=== PATIENT | female | born 1930 | race Caucasian/White ===

== ENCOUNTER 2018-01-28 08:42 | Day surgery (SDC) | payer MEDICARE ==
[~2018-01-28] VITALS: Ht 157.5 cm; Wt 55.5 kg
[~2018-01-28 08:42] MED LIST: ALBU90OI INH; CLOP75 PO; DOCU100 PO; Dyazide 37.5-21 EACH PO; LOSA25 PO; SLEEP AID25 MG PO; TRIA50 PO; VITAMIN D32000 UNIT PO; Voltaren100 GM TOP
[2018-01-28] MEDS ORDERED: LOSA50 (09:10)
== END 2018-01-28 10:10 | disposition home or self-care (01) ==
LOC: ORSCSDS 08:42
PROVIDERS: Ophthalmology
PROC: 08RJ3JZ Replacement of Right Lens with Synthetic Substitute, Percutaneous Approach (ICD-10-PCS; principal; 2018-01-28 10:00)
DX: H25.11 Age-related nuclear cataract, right eye (principal); I10 Essential (primary) hypertension; Z86.73 Personal history of transient ischemic attack (TIA), and cerebral infarction without residual deficits; F32.9 Major depressive disorder, single episode, unspecified; J45.998 Other asthma; Z79.01 Long term (current) use of anticoagulants; Z79.899 Other long term (current) drug therapy; F17.210 Nicotine dependence, cigarettes, uncomplicated
CPT/HCPCS: J2250; J3010; J3301; V2632

== ENCOUNTER → 2019-03-09 | Outpatient (CLI) | payer MEDICARE ==
[~2019-03-09] MED LIST changes: +LOSA50
== END | disposition home or self-care (01) ==
LOC: PLD 11:43 → LAB SHORT 11:43
DX: L72.0 Epidermal cyst (principal)
CPT/HCPCS: 88304

== ENCOUNTER → 2019-04-14 | Outpatient (CLI) | payer MEDICARE ==
[2019-04-14 13:21] LABS: BASOPHILS ABSOLUTE AUTO 0.07 K/mm3 (0.00-0.23); BASOPHILS PERCENT AUTO 1 % (0-2); EOSINOPHILS ABSOLUTE AUTO 0.02 K/mm3 (0.00-0.68); EOSINOPHILS PERCENT AUTO 0 % (0-6); Hematocrit 39.2 % (33.0-51.0); Hemoglobin 12.7 g/dL (11.5-16.0); IMMATURE GRAN ABSOLUTE AUTO 0.08 K/mm3 (0.00-0.10); IMMATURE GRAN PERCENT AUTO 1 % (0-1); LYMPHOCYTES ABSOLUTE AUTO 1.25 K/mm3 (0.84-5.20); LYMPHOCYTES PERCENT AUTO 19 % (21-46); MONOCYTES ABSOLUTE AUTO 0.48 K/mm3 (0.16-1.47); MONOCYTES PERCENT AUTO 7 % (4-13); Mean Corpuscular HGB 31.1 pg (26.0-34.0); Mean Corpuscular HGB Conc 32.4 g/dL (31.5-36.5); Mean Corpuscular Volume 96 fL (80-100); Mean Platelet Volume 11.4 fL (9.1-12.4); NEUTROPHILS ABSOLUTE AUTO 4.64 K/mm3 (1.96-9.15); NEUTROPHILS PERCENT AUTO 71 % (41-73); Platelet Count 204 K/mm3 (150-400); RDW Coefficient Variation 13.6 % (11.7-14.2); RDW Standard Deviation 48.3 fL (35.1-46.3); Red Blood Cell Count 4.09 M/mm3 (3.80-5.20); White Blood Cell Count 6.54 K/mm3 (4.00-11.30)
[2019-04-14 13:30] LABS: Alanine Aminotransfer (ALT/SGP 21 U/L (12-78); Albumin, Blood 3.7 g/dL (3.4-5.0); Albumin/Globulin Ratio 1.2 (0.8-1.8); Alk Phos 104 U/L (40-126); Anion Gap 5 mmol/L (6-16); Aspartate Aminotrans (AST/SGOT 15 U/L (12-37); Bilirubin, Total 0.8 mg/dL (0.1-1.0); Blood Urea Nitrogen 14 mg/dL (8-24); Bun/Creatinine Ratio 24.6 (12.0-20.0); CO2, Blood 31 mmol/L (21-32); Chloride, Blood 107 mmol/L (98-108); Creatinine, Blood 0.57 mg/dL (0.40-1.00); Globulin, Blood 3.1 g/dL (2.2-4.0); Glomerular Filtration Rate >60 (60-); Glucose, Blood 109 mg/dL (70-99); Magnesium, Blood 1.5 mg/dL (1.6-2.4); Potassium, Blood 3.8 mmol/L (3.5-5.5); Sodium, Blood 143 mmol/L (136-145); Total Protein, Blood 6.8 g/dL (6.4-8.2)
== END | disposition home or self-care (01) ==
LOC: LAB EV 13:14 → LAB SHORT 13:14
PROVIDERS: Physician Assistant
DX: I50.9 Heart failure, unspecified (principal)
CPT/HCPCS: 80053; 83735; 83880; 85025

== ENCOUNTER 2020-12-05 12:41 | Inpatient (IN) | payer MEDICARE ==
[~2020-12-05] VITALS: Ht 154.9 cm; Wt 50.4 kg
[~2020-12-05 12:41] MED LIST changes: -ALEN10 PO; -DOXYLAMINE-PYR1 EAC1 PO; -LANOXIN125 MCG PO; -Nicoderm Cq1 EACH TOP; -TOPROL XL50 M1 PO; -XARELTO20 MG PO
[2020-12-05 13:21] LABS: BASOPHILS ABSOLUTE AUTO 0.06 K/mm3 (0.00-0.23); BASOPHILS PERCENT AUTO 1 % (0-2); EOSINOPHILS ABSOLUTE AUTO 0.02 K/mm3 (0.00-0.68); EOSINOPHILS PERCENT AUTO 0 % (0-6); Hematocrit 40.9 % (33.0-51.0); IMMATURE GRAN ABSOLUTE AUTO 0.02 K/mm3 (0.00-0.10); IMMATURE GRAN PERCENT AUTO 0 % (0-1); LYMPHOCYTES ABSOLUTE AUTO 1.13 K/mm3 (0.84-5.20); LYMPHOCYTES PERCENT AUTO 13 % (21-46); MONOCYTES ABSOLUTE AUTO 0.75 K/mm3 (0.16-1.47); MONOCYTES PERCENT AUTO 8 % (4-13); Mean Corpuscular HGB 30.9 pg (26.0-34.0); Mean Corpuscular HGB Conc 31.8 g/dL (31.5-36.5); Mean Corpuscular Volume 97 fL (80-100); Mean Platelet Volume 11.5 fL (9.1-12.4); NEUTROPHILS ABSOLUTE AUTO 6.92 K/mm3 (1.96-9.15); NEUTROPHILS PERCENT AUTO 78 % (41-73); Platelet Count 252 K/mm3 (150-400); RDW Coefficient Variation 13.5 % (11.7-14.2); RDW Standard Deviation 48.4 fL (35.1-46.3); Red Blood Cell Count 4.21 M/mm3 (3.80-5.20)
[2020-12-05 13:40] LABS: Alanine Aminotransfer (ALT/SGP 62 U/L (12-78); Albumin, Blood 3.1 g/dL (3.4-5.0); Alk Phos 113 U/L (50-136); Anion Gap 6 mmol/L (6-16); Aspartate Aminotrans (AST/SGOT 34 U/L (12-37); Bilirubin, Total 0.9 mg/dL (0.1-1.0); Blood Urea Nitrogen 19 mg/dL (8-24); CO2, Blood 25 mmol/L (21-32); Calcium, Blood 8.4 mg/dL (8.5-10.1); Chloride, Blood 111 mmol/L (98-108); Creatinine, Blood 0.73 mg/dL (0.40-1.00); Globulin, Blood 3.1 g/dL (2.2-4.0); Glomerular Filtration Rate >60 (60-); Glucose, Blood 133 mg/dL (70-99); Potassium, Blood 4.2 mmol/L (3.5-5.5); Sodium, Blood 142 mmol/L (136-145); Total Protein, Blood 6.2 g/dL (6.4-8.2); Troponin I 0.017 ng/mL (0.000-0.040)
[2020-12-05] MEDS ORDERED: TOPROL XL50 M1 PO (14:34)
[2020-12-05] MEDS ORDERED: ALEN10 PO (14:34)
[2020-12-05] MEDS ORDERED: CLOP75 PO (14:34)
[2020-12-05 14:35] LABS: Free Thyroxine 1.11 ng/dL (0.70-1.60); Thyroid Stimulating Hormone 1.63 uIU/mL (0.360-4.800)
[2020-12-06 05:54] LABS: BASOPHILS ABSOLUTE AUTO 0.05 K/mm3 (0.00-0.23); BASOPHILS PERCENT AUTO 1 % (0-2); EOSINOPHILS ABSOLUTE AUTO 0.04 K/mm3 (0.00-0.68); EOSINOPHILS PERCENT AUTO 1 % (0-6); Hematocrit 36.2 % (33.0-51.0); Hemoglobin 11.8 g/dL (11.5-16.0); IMMATURE GRAN ABSOLUTE AUTO 0.02 K/mm3 (0.00-0.10); IMMATURE GRAN PERCENT AUTO 0 % (0-1); LYMPHOCYTES ABSOLUTE AUTO 1.08 K/mm3 (0.84-5.20); LYMPHOCYTES PERCENT AUTO 18 % (21-46); MONOCYTES ABSOLUTE AUTO 0.58 K/mm3 (0.16-1.47); MONOCYTES PERCENT AUTO 10 % (4-13); Mean Corpuscular HGB 31.2 pg (26.0-34.0); Mean Corpuscular HGB Conc 32.6 g/dL (31.5-36.5); Mean Corpuscular Volume 96 fL (80-100); Mean Platelet Volume 11.2 fL (9.1-12.4); NEUTROPHILS ABSOLUTE AUTO 4.22 K/mm3 (1.96-9.15); NEUTROPHILS PERCENT AUTO 71 % (41-73); Platelet Count 202 K/mm3 (150-400); RDW Coefficient Variation 13.6 % (11.7-14.2); RDW Standard Deviation 47.8 fL (35.1-46.3); Red Blood Cell Count 3.78 M/mm3 (3.80-5.20); White Blood Cell Count 5.99 K/mm3 (4.00-11.30)
[2020-12-06 06:25] LABS: Anion Gap 5 mmol/L (6-16); Blood Urea Nitrogen 22 mg/dL (8-24); Bun/Creatinine Ratio 34.4 (12.0-20.0); CO2, Blood 26 mmol/L (21-32); Calcium, Blood 8.4 mg/dL (8.5-10.1); Chloride, Blood 111 mmol/L (98-108); Creatinine, Blood 0.64 mg/dL (0.40-1.00); Glomerular Filtration Rate >60 (60-); Glucose, Blood 102 mg/dL (70-99); Phosphorus, Blood 3.3 mg/dL (2.5-4.9); Potassium, Blood 3.9 mmol/L (3.5-5.5); Sodium, Blood 142 mmol/L (136-145)
[2020-12-06] MEDS ORDERED: DOXYLAMINE-PYR1 EAC1 PO (11:47)
--- NOTE | 2020-12-06 13:02 | NUR ---
Echocardiogram performed.
--- NOTE | 2020-12-06 15:48 | NUR ---
RM: [facility] PCU NAME: Frances Fox : 1930 PCP: Stephanie ObregonPATIENT PHYSICIAN: Dr. Brooks CC: Stephanie EastADMIT: 12/05/2020 DISCHARGE DATE: TBD DX: AFIB with RVR RECENT HOSPITILIZATIONS: N/AUpdate 12/06/20: Per chart review with Dr. Brooks, pt. likely to discharge within the next 24-48 hours. discussed discharge planning and care coordination with pt. The only concern that she has is difficult in performing housework such as cleaning. I have put together a packet for pt. with info regarding assistance with tool maker apprentice. Scheduled pt. with Dr. Carreon for hospital F/U on 12/14/20 at 4:20pm. Pt. notified of appointment and given a discharge letter with appointment info written on it. Pt. advised to contact triage line with any concerns or questions post discharge. Pt. agreeable. Discharge decision TBD by Dr. Brooks.
--- NOTE | 2020-12-06 19:32 | NUR ---
RECEIVED REPORT FROM PARTS PROCESSOR AT 1016; PT ARRIVED AT 1110 VIA GURNEY ACCOMPANIED BY PARTS PROCESSOR AND VOCATIONAL NURSE WITH CARDIAC MONITORING ON ROOM AIR AND ON DILTIAZEM GTT AT 10MG/HR; PT TRANSFERRED TO TELEMETRY MONITORING; PT GAVE PERMISSION FOR ALL 3 OF HER SONS TO RECEIVE INFO ABOUT HER; PT MENTIONED BEING A DNR AND THAT HER SON CARLOS ENRIQUE HAD PAPERWORK AT HOME; CARLOS ENRIQUE'S NUMBER WAS CALLED AT 1335 BUT VOICEMAIL BOX WAS FULL; SON MOSES WAS CALLD AT 1336 AND MESSAGE LEFT; CARLOS ENRIQUE CAME TO VISIT PT IN HOSPITAL AND WAS ASKED TO BRING PAPERWORK ON HER CODE STATUS TO THE HOSPITAL SOON HE CAN SINCE PT IS STILL LISTED FULL CODE; MOSES CALLED BACK AT 1445 FOR UPDATES AND WAS INFORMED ABOUT THE VISITATION POLICY; PT DENIES ADDITIONAL CONCERNS AT THIS TIME
--- NOTE | 2020-12-07 05:26 | NUR ---
PT IS AXO X4. PT'S HR HAS MAINTAINED AFIB 80-115 THIS SHIFT. CARDIZEM RUNNING AT 5MG/HR FOR THIS SHIFT. BP'S STABLE. PT DENYING ANY CP OR PRESSURE THIS SHIFT. O2 SATS >92% ON RM AIR. WILL REPORT TO ONCOMING RN.
--- NOTE | 2020-12-07 08:00 | NUR ---
pt sitting up in a chair for breakfast, a/ox3 pleasant and cooperative with care, follows commands well, denies pain, states she feels sluggish, a bit worse than yesterday, lungs are clear dim in bases, resp even and unlabored, no cough noted, hrirr, tele in place running afib per monitor, see strip, no edema noted, ppp+2, cap refill <3sec, vs stable, afebrile, iv to rac site is clear and patent, infusing cardizem gtt as ordered, btx4, abd flat soft nontender, voids via bsc, skin c/w/d, melina franco, call light in reach.
--- NOTE | 2020-12-07 10:18 | NUR ---
Dr. Brooks in to see pt he ok to give lasix and higher dose of metoprolol, cardizem gtt off. b/p 113/63.
--- NOTE | 2020-12-07 11:52 | NUR ---
Upon receiving a referral for spiritual care, I visit patient. Patient talks at length about her family, the loss of her son in 2017 and spouse in 2019 and the pain that has caused her. Patient is very strong and has a wonderful sense of humor and is determined to continue living well and with gratitude. Patient tells me that she is spiritual and prays often and that prayer has been a primary tool for over coming the struggles in her life. I normalize patient's experience and provide therapeutic listening, spiritual guidance, grief support and prayer. Patient responds well and shows signs of an elevated mood and being comforted. I will continue to remain available to patient and family.
--- NOTE | 2020-12-07 18:33 | NUR ---
PT HAS BEEN DOING OK, BUT HEART RATE IS GOING BETWEEN 109 TO 140'S, SHE DID HAVE A LOPRESSOR PUSH, WILL DO ANOTHER, IF STILL UP. PT IS NOT SYMPTOMATIC, B/P OK, CALL LIGHT IN REACH.
--- NOTE | 2020-12-07 19:31 | NUR ---
ASSUMED CARE, PATIENT LAYING IN BED A&O, NO COMPLAINTS OR NEEDS AT THIS TIME. SEE [facility] SHIFT ASSESSMENT FOR FULL ASSESSMENT.
--- NOTE | 2020-12-07 22:32 | NUR ---
RECEIVED REPORT AND ASSUMED CARE OF PT. SHE IS LYING QUIETLY IN BED WITH HER EYES CLOSED AND EVEN, UNLABORED RESPIRATIONS. WCTM.
--- NOTE | 2020-12-08 02:40 | NUR ---
PT's HR NOTED TO HAVE TRENDED UP TO 140-150. IV METOPROLOL ADMINISTERED, HR IMPROVED TO 130's. WCTM.
--- NOTE | 2020-12-08 06:37 | NUR ---
SHIFT SUMMARY: AYLIN IS A&OX4. VSS, NO ACUTE EVENTS OVERNIGHT. SHE DID REQUIRE A DOSE OF IV METOPROLOL THIS SHIFT FOR HR TRENDING INTO THE 104s. SHE STATES THAT SHE CAN TELL WHEN HER HEART RATE IS RAPID BECAUSE SHE BECOMES SOB. SHE IS TOLERATING PO INTAKE WELL, URINATING WIHTOUT DIFFICULTY, STANDBY ASSIST TO THE BATHROOM ALTHOUGH SHE ADMITTED THAT HAS TAKEN HERSELF INDEPENDENTLY THIS SHIFT. IV TO R AC PATENT, DRESSING CHANGED D/T SMALL AMT BLOOD. SHE IS LYING IN BED WITH THE CALL LIGHT IN REACH. WILL REPORT TO DAY SHIFT RN.
--- NOTE | 2020-12-08 08:00 | NUR ---
pt up to chair for breakfast, she is a/ox3, pleasant and cooperative with care, follows commands well, denies pain, but states she feels off, that she felt better yesterday but cant define what it is, her stomach was bothering her, she agreed to try some soda, this didn't help much, lungs are clear t/o, resp even and unlabored, no cough noted, is on r/a, hrirr, tele in place running afib between 110 and 145 bpm, no edema noted, ppp+2, cap refill< 3sec, vs stable, afebrile, iv site to rac is clear and patent, bt x4, abd flat soft nontender, voids without diff, skin c/w/d, joan, melina, call light in reach.
--- NOTE | 2020-12-08 16:38 | NUR ---
Update 12/08/20: Per chart review with Dr. Brooks, pt. not yet appropriate for discharge. PT. attempted to evaluate pt. today, unable to due to elevated heart rate per notes. Pt. could potentially need home health at time of discharge. Pt. has been scheduled for her hospital F/U appointment on 12/14/20 at 4:20 pm. Discharge planning with exception of hospice or alternative recommendations from PT has been completed with pt. Pt. has appointment card with time and date. If pt. remains hospitalized throughout the weekend we will discuss changing appointment on Friday.
--- NOTE | 2020-12-08 18:54 | NUR ---
pt heart rate is unchanged, she reports she has been off today, no feeling great, she did recieve a dose of lasix this early evening, she wasn't happy about that, but had her use a bsc rather than trying to ambulate to the bathroom, no further change this shift, call light in reach.
--- NOTE | 2020-12-09 06:06 | NUR ---
SHIFT SUMMARY PATIENT ALERT AND ORIENTED. HAD NO COMPLAINTS OF PAIN. REPORTED HAVING SOME SHORTNESS OF BREATH. MEDICATED PER EMAR FOR TACHYCARDIA. IV PATENT AND FLUSHED. BED IN LOWEST POSITION WITH WHEELS LOCKED. CALL LIGHT WITHIN REACH. REPORT GIVEN TO ONCOMING RN.
--- NOTE | 2020-12-09 18:08 | NUR ---
SHIFT SUMMARY: STARTED ON AMIODORONE PO THIS MORNING, HR SLIGHTLY IMPROVED TO 110-120 FROM 140'S. DENIES PAIN INCLUDING CHEST DISCOMFORT, BUT ENDORSES FEELING POORLY IN GENERAL. APPETITE IS MODERATE. GETTING UP TO BSC WITH SUPERVISION. LUNGS ARE CTAB, ON RA. LBM 12/05; MAY NEED TO INCREASE BOWEL MEDS. PT/OT WORKED WITH PATIENT. SHE IS LOOKING FORWARD TO GOING HOME.
--- NOTE | 2020-12-09 18:48 | NUR ---
RECIEVED VERBAL CONSENT TO SPEAK TO JHONNY SAUCEDO, PT'S [id number]. LEFT MESSAGE. [phone]
--- NOTE | 2020-12-10 06:12 | NUR ---
SHIFT SUMMARY PATIENT ALERT AND ORIENTED. HAD NO COMPLAINTS OF PAIN. REPORTED HAVING SOME SHORTNESS OF BREATH AND A TRANSIENT EPISODE OF CHEST PRESSURE. PATIENT SLEPT WELL OVERNIGHT. IV PATENT AND FLUSHED. BED IN LOWEST POSITION WITH WHEELS LOCKED. CALL LIGHT WITHIN REACH. REPORT GIVEN TO ONCOMING RN.
[2020-12-10 14:25] LABS: Anion Gap 8 mmol/L (6-16); Blood Urea Nitrogen 30 mg/dL (8-24); Bun/Creatinine Ratio 46.4 (12.0-20.0); CO2, Blood 25 mmol/L (21-32); Calcium, Blood 9.1 mg/dL (8.5-10.1); Chloride, Blood 108 mmol/L (98-108); Creatinine, Blood 0.65 mg/dL (0.40-1.00); Glomerular Filtration Rate >60 (60-); Glucose, Blood 172 mg/dL (70-99); Potassium, Blood 3.7 mmol/L (3.5-5.5); Sodium, Blood 141 mmol/L (136-145)
--- NOTE | 2020-12-10 18:33 | NUR ---
SHIFT SUMMARY PT A&O; ANXIOUS AT TIMES; CALM AND COOPERATIVE WITH CARE SHIFT. PT IND IN ROOM. HR ELEVATED 120-150 T/O SHIFT, DR ALVAREZ NOTIFIED, NEW ORDERS FOR CARDILOGY CONSULT. PRIOR TO CARDIOLOGY SEEING PT, PT BECAME SOB AND REPORTS HEART PALPITATIONS; DR ALVAREZ NOTIFIED WITH NEW ORDER FOR EKG AND ADDITIONAL DOSE OF IV LOPRESSOR. DR GARZA AT BEDSIDE THIS AFTERNOON, NEW ORDERS TO START DIGOXIN AND XARELTOL. PT EDUCATED ON BOTH NEW MEDICATIONS AND ADMINISTERED PER ORDERS. PT DENIES PAIN, NAUSEA AND DIZZINESS T/O SHIFT. PT OTHER VSS. SPO2 >90% ON RA. NO OTHER ACUTE CHANGES NOTED DURING SHIFT. WILL CONTINUE TO MONITOR UNTIL REPORT GIVEN TO ONCOMING RN.
--- NOTE | 2020-12-11 07:17 | NUR ---
SHIFT SUMMARY NO ACUTE CHANGES THIS SHIFT. PT A&OX4, SUPER PLEASANT. SP02>92% ON RA. TELEMETRY READS AFIB, HR 60'S. PT STATES "I WAS SO EXCITED TO HEAR MY HEARTRATE WAS 79 THAT I SHOT IT BACK UP!". PT UP INDEPENDENTLY TO BSC TO VOID MULTIPLE TIMES DURING NIGHT. PT SLEPT T/O SHIFT. CALL LIGHT IN REACH. WILL GIVE REPORT TO ONCOMING NURSE.
[2020-12-11 11:45] LABS: Anion Gap 8 mmol/L (6-16); Blood Urea Nitrogen 26 mg/dL (8-24); Bun/Creatinine Ratio 48.7 (12.0-20.0); CO2, Blood 26 mmol/L (21-32); Calcium, Blood 8.7 mg/dL (8.5-10.1); Chloride, Blood 108 mmol/L (98-108); Creatinine, Blood 0.53 mg/dL (0.40-1.00); Glomerular Filtration Rate >60 (60-); Glucose, Blood 148 mg/dL (70-99); Potassium, Blood 3.5 mmol/L (3.5-5.5); Sodium, Blood 142 mmol/L (136-145)
[2020-12-11 11:46] LABS: BASOPHILS ABSOLUTE AUTO 0.06 K/mm3 (0.00-0.23); BASOPHILS PERCENT AUTO 1 % (0-2); EOSINOPHILS ABSOLUTE AUTO 0.01 K/mm3 (0.00-0.68); EOSINOPHILS PERCENT AUTO 0 % (0-6); Hematocrit 41.2 % (33.0-51.0); Hemoglobin 13.6 g/dL (11.5-16.0); IMMATURE GRAN PERCENT AUTO 1 % (0-1); LYMPHOCYTES ABSOLUTE AUTO 0.92 K/mm3 (0.84-5.20); LYMPHOCYTES PERCENT AUTO 11 % (21-46); MONOCYTES ABSOLUTE AUTO 0.52 K/mm3 (0.16-1.47); MONOCYTES PERCENT AUTO 6 % (4-13); Mean Corpuscular HGB 30.6 pg (26.0-34.0); Mean Corpuscular Volume 93 fL (80-100); Mean Platelet Volume 11.3 fL (9.1-12.4); NEUTROPHILS ABSOLUTE AUTO 6.81 K/mm3 (1.96-9.15); NEUTROPHILS PERCENT AUTO 81 % (41-73); Platelet Count 300 K/mm3 (150-400); RDW Coefficient Variation 13.5 % (11.7-14.2); RDW Standard Deviation 45.7 fL (35.1-46.3); Red Blood Cell Count 4.45 M/mm3 (3.80-5.20); White Blood Cell Count 8.42 K/mm3 (4.00-11.30)
--- NOTE | 2020-12-11 17:17 | NUR ---
Update 12/11/20: HR control has continued to be a concern with pt. throughout the weekend. Pt. not yet appropriate for discharge. Spoke with pt. this afternoon and she states she is feeling much better after recent medication change. Discussed HH recommendations. Pt. agreeable to [facility] HH assessment and care post discharge. Pt. has the DME she needs at home to perform the ADL. Denied any additional needs at this time. Pt. is scheduled for a hospital F/U as mentioned in previous progress notes. We will reschedule if indicated based on discharge date.
--- NOTE | 2020-12-11 17:35 | NUR ---
SHIFT SUMMARY; ASSUMED CARE AT 0700, REPORT FROM CHARLI. Van/Van/OX4 THROUGHOUT SHIFT. AFIB WITH RATE CONTROLLED AT 60-70 DURING SHIFT. VSS, DECLINED PT THIS AFTERNOON, STATES DIDN'T FEEL UP TO IT. WILL CONTINUE TO MONITOR AND TREAT UNTIL CHANGE OF SHIFT. POSSIBLE DISCHARGE TOMORROW.
[2020-12-12 03:54] LABS: BASOPHILS ABSOLUTE AUTO 0.06 K/mm3 (0.00-0.23); BASOPHILS PERCENT AUTO 1 % (0-2); EOSINOPHILS ABSOLUTE AUTO 0.03 K/mm3 (0.00-0.68); EOSINOPHILS PERCENT AUTO 0 % (0-6); Hematocrit 38.5 % (33.0-51.0); Hemoglobin 12.7 g/dL (11.5-16.0); IMMATURE GRAN ABSOLUTE AUTO 0.03 K/mm3 (0.00-0.10); IMMATURE GRAN PERCENT AUTO 0 % (0-1); LYMPHOCYTES ABSOLUTE AUTO 1.11 K/mm3 (0.84-5.20); LYMPHOCYTES PERCENT AUTO 16 % (21-46); MONOCYTES ABSOLUTE AUTO 0.57 K/mm3 (0.16-1.47); MONOCYTES PERCENT AUTO 8 % (4-13); Mean Corpuscular HGB 30.5 pg (26.0-34.0); Mean Corpuscular Volume 93 fL (80-100); Mean Platelet Volume 10.9 fL (9.1-12.4); NEUTROPHILS PERCENT AUTO 74 % (41-73); Platelet Count 280 K/mm3 (150-400); RDW Coefficient Variation 13.4 % (11.7-14.2); RDW Standard Deviation 45.9 fL (35.1-46.3); Red Blood Cell Count 4.16 M/mm3 (3.80-5.20)
[2020-12-12 04:14] LABS: Alanine Aminotransfer (ALT/SGP 94 U/L (12-78); Albumin, Blood 2.9 g/dL (3.4-5.0); Albumin/Globulin Ratio 1.1 (0.8-1.8); Alk Phos 105 U/L (50-136); Anion Gap 7 mmol/L (6-16); Aspartate Aminotrans (AST/SGOT 42 U/L (12-37); Bilirubin, Total 0.5 mg/dL (0.1-1.0); Blood Urea Nitrogen 23 mg/dL (8-24); Bun/Creatinine Ratio 31.5 (12.0-20.0); CO2, Blood 27 mmol/L (21-32); Calcium, Blood 8.4 mg/dL (8.5-10.1); Chloride, Blood 108 mmol/L (98-108); Creatinine, Blood 0.73 mg/dL (0.40-1.00); Globulin, Blood 2.6 g/dL (2.2-4.0); Glomerular Filtration Rate >60 (60-); Glucose, Blood 101 mg/dL (70-99); Potassium, Blood 3.4 mmol/L (3.5-5.5); Sodium, Blood 142 mmol/L (136-145); Total Protein, Blood 5.5 g/dL (6.4-8.2)
--- NOTE | 2020-12-12 06:17 | NUR ---
SHIFT SUMMARY NO ACUTE CHANGES THIS SHIFT. PT A&OX4. SP02>92% ON RA. TELEMTRY READS AFIB, HR 60'S-80'S. PT DENIES PAIN. PT UP TO BATHROOM TO VOID. PT ATTEMPTED TO HAVE BM MULTIPLE TIMES DURING NIGHT. REQUESTED TO NOT HAVE BOWEL CARE UNTIL THE MORNING. PT STATES "I DONT WANT TO DO IT AT NIGHT IN CASE I HAVE A BLOW OUT." PT AWAKENED APPROX 0200 AND COULD NOT SLEEP, STATES SHE WAS WORRIED ABOUT THIS AT HOME, SUCH IF ANYONE WATERED HER PLANTS. CALL LIGHT IN REACH. WILL GIVE REPORT TO ONCOMING NURSE.
[2020-12-12] MEDS ORDERED: Nicoderm Cq1 EACH TOP (14:30)
[2020-12-12] MEDS ORDERED: LANOXIN125 MCG PO (14:30)
[2020-12-12] MEDS ORDERED: XARELTO20 MG PO (14:31)
--- NOTE | 2020-12-12 16:41 | NUR ---
DISCHARGE NOTE PT A&Ox3; CALM AND COOPERATIVE WITH CARE. PT RESTING IN BED DURING SHIFT. UP IN ROOM IND. PT REPORTS DISCOMFORT WITH NO SIGNIFICAN BM SINCE ADMISSION, NOTIFIED DR MIRANDA, NEW ORDER FOR FLEET ENEMA; RESULTING IN LARGE BM. PT DENIES PAIN, CHEST PAIN, NAUSEA AND DIZZINESS. SOB WITH EXERTION NOTED. PER TELE AFIB 70-90'S FOR MAJOIRTY OF SHIFT, UP TO 120'S WITH AMBULATION THIS AM. OTHER VSS. NO OTHER ACUTE CHAGNES NOTED. PT AND SON CARLOS ENRIQUE EDUCATED ON DISCHARGE INSTURCTIONS, FOLLOW UP APPOINTMENT AND MEDCIATIONS. XARELTO SAMPLE PROVIDED TO PT FROM [facility], PT EDUCATED TO CALL AND SPEAK WITH REP REGARDING HELP WITH XARELTO PRESCRIPTION. PRESCRIPTIONS CALLED INTO [facility] PER PT REQUEST. PT EDCUATED ON IMPORTANCE OF PICKING UP MEDCIATIONS AND DISCUSSED NEXT DOSES AT HOME. PT LEFT ROOM VIA WHEELCHAIR AT 1613.
== END 2020-12-12 16:13 | disposition home health service (06) | DRG 309 ==
LOC: ER 12:41 → ERHOLD 12:42 → PCU 12-06 10:24
PROVIDERS: Emergency Medicine; Family Medicine; Internal Medicine Cardiovascular Disease; ADMIT Internal Medicine
DX: I48.91 Unspecified atrial fibrillation (principal); I50.22 Chronic systolic (congestive) heart failure; I11.0 Hypertensive heart disease with heart failure; I08.1 Rheumatic disorders of both mitral and tricuspid valves; I25.5 Ischemic cardiomyopathy; J44.9 Chronic obstructive pulmonary disease, unspecified; M81.0 Age-related osteoporosis without current pathological fracture; F17.210 Nicotine dependence, cigarettes, uncomplicated; Z86.73 Personal history of transient ischemic attack (TIA), and cerebral infarction without residual deficits; Z79.02 Long term (current) use of antithrombotics/antiplatelets; Z88.0 Allergy status to penicillin; Z88.2 Allergy status to sulfonamides; Z88.8 Allergy status to other drugs, medicaments and biological substances; Z71.6 Tobacco abuse counseling; Z79.899 Other long term (current) drug therapy; Z90.710 Acquired absence of both cervix and uterus; Z98.890 Other specified postprocedural states
CPT/HCPCS: 36415; 71045; 71046; 80048; 80053; 83735; 83880; 84100; 84439; 84443; 84484; 85025; 93005; 93010; 93306; 96365; 96366; 96372; 96375; 96376; 97110; 97162; 97530; 99285-25; A9270; G0378; J1160; J1650; J1940

== ENCOUNTER → 2020-12-05 | Outpatient (CLI) | payer MEDICARE ==
[~2020-12-05] MED LIST changes: +ALEN10 PO; +DOXYLAMINE-PYR1 EAC1 PO; +LANOXIN125 MCG PO; -LOSA50; +LOSA50 PO; +Nicoderm Cq1 EACH TOP; +TOPROL XL50 M1 PO; +VITAMIN D31000 UNI1 PO; -VITAMIN D32000 UNIT PO; +XARELTO20 MG PO
[2020-12-05 12:11] LABS: BASOPHILS ABSOLUTE AUTO 0.04 K/mm3 (0.00-0.23); BASOPHILS PERCENT AUTO 1 % (0-2); EOSINOPHILS ABSOLUTE AUTO 0.02 K/mm3 (0.00-0.68); EOSINOPHILS PERCENT AUTO 0 % (0-6); Hematocrit 41.5 % (33.0-51.0); Hemoglobin 13.7 g/dL (11.5-16.0); IMMATURE GRAN ABSOLUTE AUTO 0.03 K/mm3 (0.00-0.10); IMMATURE GRAN PERCENT AUTO 0 % (0-1); LYMPHOCYTES ABSOLUTE AUTO 1.05 K/mm3 (0.84-5.20); LYMPHOCYTES PERCENT AUTO 13 % (21-46); MONOCYTES ABSOLUTE AUTO 0.67 K/mm3 (0.16-1.47); MONOCYTES PERCENT AUTO 9 % (4-13); Mean Corpuscular HGB 31.1 pg (26.0-34.0); Mean Corpuscular Volume 94 fL (80-100); Mean Platelet Volume 11.7 fL (9.1-12.4); NEUTROPHILS ABSOLUTE AUTO 6.06 K/mm3 (1.96-9.15); NEUTROPHILS PERCENT AUTO 77 % (41-73); Platelet Count 265 K/mm3 (150-400); RDW Coefficient Variation 13.6 % (11.7-14.2); RDW Standard Deviation 47.1 fL (35.1-46.3); Red Blood Cell Count 4.41 M/mm3 (3.80-5.20); White Blood Cell Count 7.87 K/mm3 (4.00-11.30)
[2020-12-05 12:33] LABS: Alanine Aminotransfer (ALT/SGP 69 U/L (12-78); Albumin, Blood 3.5 g/dL (3.4-5.0); Albumin/Globulin Ratio 1.1 (0.8-1.8); Alk Phos 119 U/L (40-126); Anion Gap 14 mmol/L (6-16); Aspartate Aminotrans (AST/SGOT 29 U/L (12-37); Blood Urea Nitrogen 20 mg/dL (8-24); Bun/Creatinine Ratio 24.4 (12.0-20.0); CO2, Blood 24 mmol/L (21-32); Calcium, Blood 9.4 mg/dL (8.5-10.1); Chloride, Blood 105 mmol/L (98-108); Creatinine, Blood 0.82 mg/dL (0.40-1.00); Free Thyroxine 1.34 ng/dL (0.70-1.60); Globulin, Blood 3.3 g/dL (2.2-4.0); Glomerular Filtration Rate >60 (60-); Glucose, Blood 130 mg/dL (70-99); Magnesium, Blood 1.8 mg/dL (1.6-2.4); Potassium, Blood 3.9 mmol/L (3.5-5.5); Sodium, Blood 143 mmol/L (136-145); Total Protein, Blood 6.8 g/dL (6.4-8.2)
== END | disposition home or self-care (01) ==
LOC: LAB SHORT 12:05 → LAB 12:05
PROVIDERS: Chiropractor
DX: I48.91 Unspecified atrial fibrillation (principal); R07.9 Chest pain, unspecified; R53.83 Other fatigue
CPT/HCPCS: 80053; 83735; 83880; 84439; 84443; 84484; 85025; 85379

== ENCOUNTER 2021-01-26 13:55 | Inpatient (IN) | payer MEDICARE ==
[~2021-01-26] VITALS: Ht 127 cm; Wt 46.2 kg
[~2021-01-26 13:55] MED LIST changes: +ALEN10 PO; +DOXYLAMINE-PYR1 EAC1 PO; +LANOXIN125 MCG PO; +Nicoderm Cq1 EACH TOP; +TOPROL XL50 M1 PO; +XARELTO20 MG PO
[2021-01-26 15:12] LABS: BASOPHILS ABSOLUTE AUTO 0.02 K/mm3 (0.00-0.23); BASOPHILS PERCENT AUTO 0 % (0-2); EOSINOPHILS PERCENT AUTO 0 % (0-6); Hematocrit 48.5 % (33.0-51.0); Hemoglobin 15.5 g/dL (11.5-16.0); IMMATURE GRAN PERCENT AUTO 1 % (0-1); LYMPHOCYTES ABSOLUTE AUTO 0.73 K/mm3 (0.84-5.20); LYMPHOCYTES PERCENT AUTO 6 % (21-46); MONOCYTES ABSOLUTE AUTO 0.61 K/mm3 (0.16-1.47); MONOCYTES PERCENT AUTO 5 % (4-13); Mean Corpuscular HGB 30.1 pg (26.0-34.0); Mean Corpuscular Volume 94 fL (80-100); Mean Platelet Volume 12.6 fL (9.1-12.4); NEUTROPHILS ABSOLUTE AUTO 10.86 K/mm3 (1.96-9.15); NEUTROPHILS PERCENT AUTO 88 % (41-73); NRBC ABSOLUTE 0.06 K/mm3 (0.00-0.02); NRBC Auto 0.5 /100 WBC (0.0-0.2); Platelet Count 222 K/mm3 (150-400); RDW Coefficient Variation 16.8 % (11.7-14.2); RDW Standard Deviation 54.1 fL (35.1-46.3); Red Blood Cell Count 5.15 M/mm3 (3.80-5.20); White Blood Cell Count 12.32 K/mm3 (4.00-11.30)
[2021-01-26 15:32] LABS: Albumin/Globulin Ratio 1.5 (0.8-1.8); Bilirubin, Total 1.5 mg/dL (0.1-1.0); Bun/Creatinine Ratio 44.6 (12.0-20.0); Calcium, Blood 9.6 mg/dL (8.5-10.1); Creatinine, Blood 1.39 mg/dL (0.40-1.00); Globulin, Blood 2.7 g/dL (2.2-4.0); Potassium, Blood 4.9 mmol/L (3.5-5.5); Total Protein, Blood 6.7 g/dL (6.4-8.2); Troponin I 0.086 ng/mL (0.000-0.040)
[2021-01-26 19:02] LABS: Source, Urine Clean Catch
[2021-01-26] MEDS ORDERED: ELIQUIS5 M2 PO (19:26)
[2021-01-26 19:27] LABS: Appearance, Urine Clear (Clear); Blood, Urine Neg (Neg); Color, Urine Amber (P-Yellow); Glucose Qualitative, Urine Neg (Neg); Ketones, Urine Neg (Neg); Leukocyte Esterase, Urine 1+ (Neg); Nitrite, Urine Neg (Neg); Protein, Urine 3+ (Neg); Urobilinogen, Urine 1+ (Normal)
[2021-01-26 19:45] LABS: Bilirubin, Urine 1+ (Neg)
[2021-01-26 19:46] LABS: Bacteria Few /hpf; Red Blood Cells, Urine 0-2 /hpf (0-2); Squamous Epithelial Cells Few /hpf (Few)
[2021-01-26 19:47] LABS: Hyaline Casts 0-2 /lpf (0-2)
--- NOTE | 2021-01-26 19:54 | NUR ---
Met with pt she was confussed and drifting off. She denies headache or chest pain some air hunger no nausea. Called her sons for an update. She lives with samia. He states she has been sleeping alittle more and walking less but still preparing some of her food and doing a few things. He askes her every day is she is taking her medications. She states yes but he thinks she is fibbing to him. He states the last two days she has had great decline and today she was very confussed and could not stand. Called her other son Ian and reviewed my assessment and her frailty. Julian is underweight and short of breath and ill. She told the doctor she does not want to take her medications anymore. Told the son about her statements. Ian is going to drive to [place] tomorrow to help his brother. I discussed her prognosis and kps score of 40% with Ian and brought up hospice. He said they did hospice with their father. And he understood that she was getting closer to end of life.I also dbriefly discussed with both sons linyee canraine and see if we can get her heart rate under control and get her breating better. ER physician was going to geta UA and some more diagnositcs. Pt had a booklet from [facility] as they were seeing her at one time. Called [facility] hospice and asked them to put her on their radar and will get a consult. Suggest we treat her and resume home helath or consider hospice caare if she does not repond or declines or refuses care. Goal is quality of life and reduce suffering.
[2021-01-26 20:25] LABS: SARS-Cov-2 (COVID-19) PCR, MMC NEGATIVE (NEGATIVE)
--- NOTE | 2021-01-26 23:16 | NUR ---
PATIENT ARRIVED FROM ER TODAY 01/26/21 AT 2230. SHE IS ALERT AND ORIENTED X2. SHE IS ABLE TO SAY HER NAME AND ANSWER ONLY EASIER QUESTIONS. SHE DOESN'T REMEMBER WHAT MEDICATIONS SHE TAKES OR WHERE SHE IS. VS ARE WNL EXCEPT FOR HER HR BEING TACHY WITH AFIB AND IS ON 4L NC. SHE IS ON A CARDIEM DRIP AT 5MG/HR. SHE DENIES ANY CHEST PAIN OR SHORTNESS OF BREATH. TELE IS ON. BED ALARM IS ALSO ON. SHE IS CURRENTLY LAYING IN BED RESTING COMFORTABLY. SCD'S ARE ON. CALL LIGHT WITHIN REACH.
--- NOTE | 2021-01-27 03:33 | NUR ---
SHIFT SUMMARY: AFIB WITH RVR PATIENT IS CONFUSED AND IS ONLY ORIENTED TO SELF AT THIS TIME. LUNG SOUNDS ARE DIMINISHED IN THE BASES. ENCOURAGING NC USE OF 4L OXYGEN AND DEEP BREATHING. TELE IS ON AND IS AT 114 BPM AFIB. BED ALARM IS ON. SHE HAS BEEN ASLEEP SINCE ARRIVING FROM THE ER. SCD'S ARE IN PLACE. CALL LIGHT WITHIN REACH. SHE DENIES CHEST PAIN OR SHORTNESS OF BREATH. SHE IS CURRENTLY RESTING IN BED WITH HER EYES CLOSED WITH EVEN/EQUAL RESP. THE PLAN IS TO CONTINUE WATCH OF HR AND TITRATING CARDIZEM DRIP PER HR.
[2021-01-27 05:57] LABS: Bun/Creatinine Ratio 51.5 (12.0-20.0); Calcium, Blood 8.8 mg/dL (8.5-10.1); Creatinine, Blood 1.3 mg/dL (0.40-1.00); Potassium, Blood 4.8 mmol/L (3.5-5.5); Troponin I 0.063 ng/mL (0.000-0.040)
--- NOTE | 2021-01-27 11:11 | NUR ---
CARDIZEM DRIP RE-STARTED AT APROX 1100
--- NOTE | 2021-01-27 13:52 | NUR ---
CARDIZEM GTT DISCONTINUED AT PT'S HR SUSTAINING IN 70'S PER TELE MONITOR.
[2021-01-27 14:13] LABS: Digoxin (Lanoxin) 0.59 ug/mL (0.80-2.00)
--- NOTE | 2021-01-27 18:20 | NUR ---
Will follow up with care manger and family on her future needs. kps score is 40%
--- NOTE | 2021-01-27 18:35 | NUR ---
SHIFT SUMMARY PER TELE CONTINUES TO BE AFIB WITH RATE BETWEEN 70-80 OFF CARDIZEM DRIP SWITCHED TO ORAL MEDICATION. PT ORIENTED TO SELF, HAS DIFFICULTY ANSWERING QUESTIONS. PT MAX ASSIST TO BSC PIVOT. LOW PO INTAKE T/O SHIFT.
[2021-01-28 03:38] LABS: Source, Urine Clean Catch
[2021-01-28 03:40] LABS: Bilirubin, Urine Neg (Neg); Blood, Urine 3+ (Neg); Glucose Qualitative, Urine Neg (Neg); Ketones, Urine Neg (Neg); Leukocyte Esterase, Urine 1+ (Neg); Nitrite, Urine Neg (Neg); Protein, Urine 2+ (Neg); Urobilinogen, Urine NORM (Normal)
--- NOTE | 2021-01-28 03:40 | NUR ---
SHIFT SUMMARY: AFIB RVR PATIENT IS ALERT TO SELF AND IS ABLE TO FOLLOW DIRECTIONS WHEN ASKED. VS ARE WNL AND IS ON RA. HER OXYGEN SATS ARE >90% ON RA. PATIENT DENIES CHEST PAIN OR SOB. SHE HAS TELE ON AND IS IN PLACE. PATIENT IS A 2 PERSON SBA TO THE COMMODE. SHE WAS ABLE TO VOID IN THE BEDSIDE COMMODE A LOT EASIER THAN THE BED BEASLEY. SHE OTHERWISE HAS BEEN SLEEPING MAJORITY OF THE SHIFT. SHE TENDS TO YELL OUT OF THE ROOM INSTEAD OF USING THE CALL LIGHT WHEN NEEDING SOMETHING. BED ALARM IS ON. CALL LIGHT IS WITHIN REACH.
[2021-01-28 03:59] LABS: Appearance, Urine Hazy (Clear); Color, Urine Yellow (P-Yellow)
[2021-01-28 04:00] LABS: Amorphous Light (0-Heavy); Bacteria Few /hpf; Squamous Epithelial Cells Rare /hpf (Few)
[2021-01-28 05:29] LABS: BASOPHILS ABSOLUTE AUTO 0.03 K/mm3 (0.00-0.23); BASOPHILS PERCENT AUTO 0 % (0-2); EOSINOPHILS PERCENT AUTO 0 % (0-6); Hematocrit 45.9 % (33.0-51.0); Hemoglobin 14.7 g/dL (11.5-16.0); IMMATURE GRAN ABSOLUTE AUTO 0.12 K/mm3 (0.00-0.10); IMMATURE GRAN PERCENT AUTO 1 % (0-1); LYMPHOCYTES ABSOLUTE AUTO 0.43 K/mm3 (0.84-5.20); LYMPHOCYTES PERCENT AUTO 3 % (21-46); MONOCYTES ABSOLUTE AUTO 0.71 K/mm3 (0.16-1.47); MONOCYTES PERCENT AUTO 5 % (4-13); Mean Corpuscular HGB 30.1 pg (26.0-34.0); Mean Corpuscular Volume 94 fL (80-100); Mean Platelet Volume 12.3 fL (9.1-12.4); NEUTROPHILS ABSOLUTE AUTO 12.68 K/mm3 (1.96-9.15); NEUTROPHILS PERCENT AUTO 91 % (41-73); NRBC ABSOLUTE 0.02 K/mm3 (0.00-0.02); NRBC Auto 0.1 /100 WBC (0.0-0.2); Platelet Count 119 K/mm3 (150-400); RDW Coefficient Variation 16.4 % (11.7-14.2); RDW Standard Deviation 55.2 fL (35.1-46.3); Red Blood Cell Count 4.88 M/mm3 (3.80-5.20); White Blood Cell Count 13.97 K/mm3 (4.00-11.30)
[2021-01-28 08:42] LABS: Bun/Creatinine Ratio 57.6 (12.0-20.0); Calcium, Blood 8.7 mg/dL (8.5-10.1); Creatinine, Blood 0.92 mg/dL (0.40-1.00); Potassium, Blood 4.1 mmol/L (3.5-5.5)
--- NOTE | 2021-01-28 12:20 | NUR ---
PT TRANSFERED TO MEDICAL FLOOR RM 361 AT APROX 1210. REPORT GIVEN TO KENIA SMALL
--- NOTE | 2021-01-28 12:21 | NUR ---
ASSUMED CARE OF PT. PT ORIENTED TO ROOM, CALL LIGHT IN REACH, BED IN LOW POSITION. BED ALARM ON. PT RESTING W EYES SHUT RR E/U.
--- NOTE | 2021-01-28 13:48 | NUR ---
will see tomorrow if [facility] has polst. If further decline reccomend hospice.
--- NOTE | 2021-01-28 19:19 | NUR ---
SHIFT SUMMARY: NO ACUTE CHANGES THIS SHIFT.
--- NOTE | 2021-01-29 03:46 | NUR ---
SHIFT SUMMARY NO ACUTE CHANGES TO REPORT THIS SHIFT, PT HAS RESTED MOST OF THE NIGHT. PLESANTLY CONFUSED. PT TOOK MOST OF HER MEDICATIONS THIS SHIFT BUT REFUSED HER METOPROLOL. PT HAD A LARGE INCONTINENT BM THIS SHIFT. TELE IN PLACE AFIB RHYTHM UNCHANGED. BED IN LOWEST POSITION, CALL LIGHT WITHIN REACH.
[2021-01-29 05:58] LABS: BASOPHILS ABSOLUTE AUTO 0.02 K/mm3 (0.00-0.23); BASOPHILS PERCENT AUTO 0 % (0-2); EOSINOPHILS PERCENT AUTO 0 % (0-6); Hematocrit 47.6 % (33.0-51.0); Hemoglobin 14.8 g/dL (11.5-16.0); IMMATURE GRAN ABSOLUTE AUTO 0.08 K/mm3 (0.00-0.10); IMMATURE GRAN PERCENT AUTO 1 % (0-1); LYMPHOCYTES ABSOLUTE AUTO 0.37 K/mm3 (0.84-5.20); LYMPHOCYTES PERCENT AUTO 3 % (21-46); MONOCYTES ABSOLUTE AUTO 0.48 K/mm3 (0.16-1.47); MONOCYTES PERCENT AUTO 4 % (4-13); Mean Corpuscular HGB 30.5 pg (26.0-34.0); Mean Corpuscular HGB Conc 31.1 g/dL (31.5-36.5); Mean Corpuscular Volume 98 fL (80-100); Mean Platelet Volume 12.7 fL (9.1-12.4); NEUTROPHILS ABSOLUTE AUTO 10.07 K/mm3 (1.96-9.15); NEUTROPHILS PERCENT AUTO 91 % (41-73); NRBC ABSOLUTE 0.02 K/mm3 (0.00-0.02); NRBC Auto 0.2 /100 WBC (0.0-0.2); Platelet Count 101 K/mm3 (150-400); RDW Coefficient Variation 16.3 % (11.7-14.2); RDW Standard Deviation 56.8 fL (35.1-46.3); Red Blood Cell Count 4.86 M/mm3 (3.80-5.20); White Blood Cell Count 11.02 K/mm3 (4.00-11.30)
[2021-01-29 06:32] LABS: Anion Gap 8 mmol/L (6-16); Blood Urea Nitrogen 43 mg/dL (8-24); Bun/Creatinine Ratio 53.2 (12.0-20.0); CO2, Blood 23 mmol/L (21-32); Calcium, Blood 8.9 mg/dL (8.5-10.1); Chloride, Blood 118 mmol/L (98-108); Creatinine, Blood 0.81 mg/dL (0.40-1.00); Glomerular Filtration Rate >60 (60-); Glucose, Blood 96 mg/dL (70-99); Potassium, Blood 3.8 mmol/L (3.5-5.5); Sodium, Blood 149 mmol/L (136-145)
--- NOTE | 2021-01-29 09:47 | NUR ---
PT WAS LETHARGIC THIS MORNING AND REFUSING MEDICATIONS. HR WAS JUMPING FRPOM 49-60. HELD MEDICATIONS. PT REPOSITIONED AND ASSISTED UP FOR BREAKFAST. SHORTLY AFTER TELE CALLED AND REPORTED HR AFIB IN THE 130'S. RECHECKED BP AND AND PT MORE ALERT AND AMIABLE TO TAKING HER MEDICATIONS. BP MEDS GIVEN PER JUL.
--- NOTE | 2021-01-29 15:37 | NUR ---
HARNESS PLACER REPORTED BLACK WATERY STOOL. PT ALSO HAD BLEEDING FROM EXCORIATED AREA TO RECTAL AREA. PT CLEANED UP AND APPLIED CALMOSEPTINE AND PRESSURE TO STOP BLEEDING. DR. MEDLEY NOTIFIED OF STOOL. ORDERS RECEIVED TO HOLD ELIQUIS TONIGHT ONLY AND PLACE A GI CONSULT. HGB 14.6 THIS AM. ORDERS PLACED.
--- NOTE | 2021-01-29 15:40 | NUR ---
UNABLE TO PLACE GI CONSULT TODAY, NO PROVIDER AVAILABLE .WILL PASS ONTO NOC SHIFT REPORT TO MD TOMORROW.
--- NOTE | 2021-01-29 17:08 | NUR ---
ADMIT: 01/26/21 DISCHARGE: DX: Afib with RVR CC: [facility]ANNE CALL: RESIDENCE: CAREGIVER: Raf Fox, Child, Ian Fox, Child, DX: CAD, CVA, CHF, HTN, see list DME: none CCM: none HOME HEALTH: [facility]- 11/2020 SUMMARY: 01/29/21- per chart review with Dr. Siu, pt will be able to discharge home tomorrow or Friday with hospice. -zuleima
--- NOTE | 2021-01-29 19:50 | NUR ---
SHIFT SUMMARY: PT A/O TO SELF, LETHARGIC THROUGHOUT THE DAY. BLACK LOOSE STOOL NOTED AND MD NOTIFIED. ELIQUIS TO BE HELD TODAY. HAD A-FIB ACCORDING TO TELE TODAY WITH RUN INTO 130'S. AM MEDS GIVEN AND NO FURTHER REPORTS OF ELEVATED HR. GI CONSULT TO BE PLACED TOMORROW.
[2021-01-30 06:27] LABS: BASOPHILS ABSOLUTE AUTO 0.01 K/mm3 (0.00-0.23); BASOPHILS PERCENT AUTO 0 % (0-2); Hemoglobin 14.4 g/dL (11.5-16.0); LYMPHOCYTES ABSOLUTE AUTO 0.43 K/mm3 (0.84-5.20); LYMPHOCYTES PERCENT AUTO 4 % (21-46); MONOCYTES ABSOLUTE AUTO 0.46 K/mm3 (0.16-1.47); MONOCYTES PERCENT AUTO 5 % (4-13); Mean Corpuscular HGB 30.1 pg (26.0-34.0); Mean Corpuscular HGB Conc 31.3 g/dL (31.5-36.5); Mean Corpuscular Volume 96 fL (80-100); Platelet Count 77 K/mm3 (150-400); RDW Coefficient Variation 15.9 % (11.7-14.2); RDW Standard Deviation 55.7 fL (35.1-46.3); Red Blood Cell Count 4.79 M/mm3 (3.80-5.20); White Blood Cell Count 9.81 K/mm3 (4.00-11.30)
[2021-01-30 06:30] LABS: Anion Gap 6 mmol/L (6-16); Blood Urea Nitrogen 36 mg/dL (8-24); Bun/Creatinine Ratio 47.2 (12.0-20.0); CO2, Blood 27 mmol/L (21-32); Calcium, Blood 8.1 mg/dL (8.5-10.1); Chloride, Blood 120 mmol/L (98-108); Creatinine, Blood 0.76 mg/dL (0.40-1.00); Glomerular Filtration Rate >60 (60-); Glucose, Blood 101 mg/dL (70-99); Potassium, Blood 3.5 mmol/L (3.5-5.5); Sodium, Blood 153 mmol/L (136-145)
[2021-01-30 06:32] LABS: EOSINOPHILS ABSOLUTE AUTO 0.01 K/mm3 (0.00-0.68); EOSINOPHILS PERCENT AUTO 0 % (0-6); IMMATURE GRAN ABSOLUTE AUTO 0.07 K/mm3 (0.00-0.10); IMMATURE GRAN PERCENT AUTO 1 % (0-1); Mean Platelet Volume 13.5 fL (9.1-12.4); NEUTROPHILS ABSOLUTE AUTO 8.83 K/mm3 (1.96-9.15); NEUTROPHILS PERCENT AUTO 90 % (41-73)
--- NOTE | 2021-01-30 08:24 | NUR ---
Shift Summary Tele: Afib 88. Rosey held d/t possible melena. Patient attempt to climb out of bed x 1, RESIDENTIAL INSTRUCTOR assisted back into bed. Bed alarm on. Continues to have diarrhea and perianal area is excoriated.
[2021-01-30 09:18] LABS: BASOPHILS PERCENT MAN 0 % (0-2); EOSINOPHILS PERCENT MAN 0 % (0-6); LYMPHOCYTES ABSOLUTE MAN 0.09 K/mm3 (0.84-5.20); LYMPHOCYTES PERCENT MAN 1 % (21-46); MONOCYTES ABSOLUTE MAN 0.19 K/mm3 (0.16-1.47); MONOCYTES PERCENT MAN 2 % (4-13); NEUTROPHILS ABSOLUTE MAN 9.51 K/mm3 (1.96-9.15); SEG NEUTROPHILS PERCENT MAN 97 % (41-73); TOTAL CELLS COUNTED 100
--- NOTE | 2021-01-30 13:28 | NUR ---
review of pt with nitish for hospice consult.
--- NOTE | 2021-01-30 15:57 | NUR ---
01/30/21- SPOKE WITH JOSIHA WITH [facility] AND SHE REPORTS THAT SON CARLOS ENRIQUE CAN'T TAKE CARE OF PT ANYMORE AND FEELS THAT SHE NEEDS PLACEMENT. SHE ALSO SPOKE WITH SON MOSES AND HE IS GOING TO BE THE CHAMFERING MACHINE OPERATOR FOR THEIR MOM. THERE IS QUESTION IF PT NEEDS PLACEMENT AND/OR HOSPICE. -MERT REACHED OUT TO JOSIAH WITH [facility] TO DISCUSS PT DISCHARGING HOME ON HOSPICE THIS WEEK. -MITCH
--- NOTE | 2021-01-30 19:30 | NUR ---
ASSUMED CARE RECEIVED REPORT FROM GEOVANNY EVANS. PT RESTING, IN NAD. NO ACUTE NEEDS ASSESSED AT THIS TIME. CALL LIGHT, POSSESSIONS IN REACH, BED IN LOW AND LOCKED POSITION WITH ALARMS ON. TM.
--- NOTE | 2021-01-30 20:07 | NUR ---
PT HAS REMAINED ALERT AND ORIENTED X2-3 WITH CONFUSION. VERY COOPERATIVE. TREATED PER EMAR THIS SHIFT FOR INCREASED HR (135-153)+AFIB. PER RONAL, OK TO GIVE 2100 DOSE OF METOPROLOL AT 0640. CLASSROOM TECHNOLOGY TECHNICIAN STAFF AWARE AND INFORMED TO CALL MD IF NO RESULTS. STAFF WILL CONT TO MONITOR.
--- NOTE | 2021-01-30 20:43 | NUR ---
THIS RN NOTIFIED BY TUBE BACKER OF PT'S 3 BEAT RUN OF VTACH. PT ASYMPTOMATIC. WCTM.
[2021-01-31 04:14] LABS: BASOPHILS ABSOLUTE AUTO 0.02 K/mm3 (0.00-0.23); BASOPHILS PERCENT AUTO 0 % (0-2); Hematocrit 43.7 % (33.0-51.0); Hemoglobin 13.8 g/dL (11.5-16.0); LYMPHOCYTES ABSOLUTE AUTO 0.48 K/mm3 (0.84-5.20); LYMPHOCYTES PERCENT AUTO 6 % (21-46); MONOCYTES ABSOLUTE AUTO 0.54 K/mm3 (0.16-1.47); MONOCYTES PERCENT AUTO 6 % (4-13); Mean Corpuscular HGB 29.9 pg (26.0-34.0); Mean Corpuscular HGB Conc 31.6 g/dL (31.5-36.5); Mean Corpuscular Volume 95 fL (80-100); Platelet Count 70 K/mm3 (150-400); RDW Coefficient Variation 15.9 % (11.7-14.2); RDW Standard Deviation 54.4 fL (35.1-46.3); Red Blood Cell Count 4.61 M/mm3 (3.80-5.20); White Blood Cell Count 8.66 K/mm3 (4.00-11.30)
[2021-01-31 04:29] LABS: Anion Gap 5 mmol/L (6-16); Blood Urea Nitrogen 31 mg/dL (8-24); Bun/Creatinine Ratio 43.2 (12.0-20.0); CO2, Blood 28 mmol/L (21-32); Calcium, Blood 8.1 mg/dL (8.5-10.1); Chloride, Blood 117 mmol/L (98-108); Creatinine, Blood 0.72 mg/dL (0.40-1.00); Glomerular Filtration Rate >60 (60-); Glucose, Blood 95 mg/dL (70-99); Potassium, Blood 3.4 mmol/L (3.5-5.5); Sodium, Blood 150 mmol/L (136-145)
[2021-01-31 04:37] LABS: EOSINOPHILS ABSOLUTE AUTO 0.02 K/mm3 (0.00-0.68); EOSINOPHILS PERCENT AUTO 0 % (0-6); IMMATURE GRAN ABSOLUTE AUTO 0.05 K/mm3 (0.00-0.10); IMMATURE GRAN PERCENT AUTO 1 % (0-1); Mean Platelet Volume 13.2 fL (9.1-12.4); NEUTROPHILS ABSOLUTE AUTO 7.55 K/mm3 (1.96-9.15); NEUTROPHILS PERCENT AUTO 87 % (41-73)
--- NOTE | 2021-01-31 05:30 | NUR ---
NOTIFIED DR. JENSEN REGARDING PT'S MULTIPLE 3-BEAT RUNS OF VTACH. ORDERS RECEIVED TO CHECK MAGNESIUM, NO OTHER ORDERS RECEIVED. WCTM.
[2021-01-31 05:47] LABS: Magnesium, Blood 2.1 mg/dL (1.6-2.4)
--- NOTE | 2021-01-31 06:57 | NUR ---
SHIFT SUMMARY PT ASLEEP, IN NAD. VS REVIEWED,WNL, BP'S STABLE. PT HAS BEEN SUSTAINING AFIB WITH HR IN THE 80'S, EXCEPT FOR RUNS OF VTACH (SEE PREVIOUS NOTES). APPEARED TO REST WELL OVERNIGHT. NO OTHER ACUTE CONCERNS TO REPORT. DENIES NEEDS AT THIS TIME. CALL LIGHT, POSSESSIONS IN REACH, BED IN LOW AND LOCKED POSITION WITH ALARMS ON. WILL REPORT OFF TO ONCOMING RN.
--- NOTE | 2021-01-31 19:56 | NUR ---
PT REMAINS ORIENTED X3, NOT TO DAY AND TIME. NO ALERTS FROM TELE THIS SHIFT. PT MAKES NO C/O CHEST PAIN OR SOB AT THIS TIME. GI CONSULT COPLETE. TO CONTINUE TO MONITOR AND DOCUMENT STOOLS.
[2021-02-01 05:16] LABS: Anion Gap 5 mmol/L (6-16); Blood Urea Nitrogen 31 mg/dL (8-24); Bun/Creatinine Ratio 39.5 (12.0-20.0); CO2, Blood 29 mmol/L (21-32); Calcium, Blood 7.8 mg/dL (8.5-10.1); Chloride, Blood 115 mmol/L (98-108); Creatinine, Blood 0.78 mg/dL (0.40-1.00); Glomerular Filtration Rate >60 (60-); Glucose, Blood 100 mg/dL (70-99); Potassium, Blood 3.4 mmol/L (3.5-5.5); Sodium, Blood 149 mmol/L (136-145)
--- NOTE | 2021-02-01 06:53 | NUR ---
SHIFT SUMMARY ALERT, ABLE TO MAKE NEEDS KNOWN. CONFUSED AT TIMES. COOPERATIVE WITH CARE. ANSWERS QUESTIONS TO THE BEST OF HER ABILITY. NO ACUTE CHANGES NOTED OVERNIGHT. TELE REMAINS AFIB IN 90s. BED REMAINS IN LOWEST POSITION. CALL LIGHT AND BELONGINGS WITHIN REACH. CONTINUE WITH CURRENT PLAN OF CARE. REPORT TO ONCOMING RN.
--- NOTE | 2021-02-01 17:18 | NUR ---
SHIFT SUMMARY PT AXO TO SELF, SURROUNDINGS, PLACE, FOLLOWING DIRECTIONS THOUGH STATES THAT SHE IS "SLEEPY." HYPOTENSION NOTED AT THIS TIME 95/48. PT ON FLUIDS PER EMAR AT 75MML/HR. PT DENIES PAIN, SOB AND NV. BED IN LOW POSITION, CALL LIGHT WITHIN REACH, BED ALARM ON. TURNED Q2 FOR PRESSURE ULCER PREVENTION.
[2021-02-02 05:00] LABS: Mean Corpuscular HGB Conc 31.7 g/dL (31.5-36.5); Mean Corpuscular Volume 95 fL (80-100); Platelet Count 75 K/mm3 (150-400); RDW Coefficient Variation 15.8 % (11.7-14.2); RDW Standard Deviation 54.6 fL (35.1-46.3); Red Blood Cell Count 4.34 M/mm3 (3.80-5.20); White Blood Cell Count 6.33 K/mm3 (4.00-11.30)
[2021-02-02 05:07] LABS: Mean Platelet Volume 13.4 fL (9.1-12.4)
[2021-02-02 05:19] LABS: Anion Gap 6 mmol/L (6-16); Blood Urea Nitrogen 27 mg/dL (8-24); Bun/Creatinine Ratio 38.8 (12.0-20.0); CO2, Blood 25 mmol/L (21-32); Calcium, Blood 7.7 mg/dL (8.5-10.1); Chloride, Blood 114 mmol/L (98-108); Glomerular Filtration Rate >60 (60-); Glucose, Blood 98 mg/dL (70-99); Potassium, Blood 3.7 mmol/L (3.5-5.5); Sodium, Blood 145 mmol/L (136-145)
--- NOTE | 2021-02-02 08:13 | NUR ---
Patient is alert to self and intermittantly to place. She has no complaints of disconfort and is cooperative with care. still 1+ bilateral lower extremity edema.
--- NOTE | 2021-02-02 11:39 | NUR ---
Update 02/02/21: validation manager Laura Farr previously assigned to pt. In reviewing chart this am, it appears that family is not confident in their ability to care for pt. at home. It was unclear as to the progress that has been made on placement over the last two days. Contacted Nemo with [facility] to determine if the family has changed their mind regarding patient's care. Per Nemo, hospice has approved pt. for hospice based on several diagnosis on problem list. Requested the admitting diagnosis (will add to notes). Nemo talked with patient's son Ian as his son Joao has been overwhelmed with patient's care. Dr. Siu has noted that patient's care needs have decreased over the last few days. Ian would possibly be able to care for pt. at home with assistance from HH/hospice. Plan for Nemo with hospice and Katlyn with paliative care to have a conference call with pt. and son Ian this afternoon to discuss options and better explain hospice vs. home health. Ian will also be provided with caregiver packet including finanacial aid information and list of caregivers within the area. Pt. does not have long-term care benefits. To qualify for long-term care, pt. would need to be a spend-down to Medicaid, go through the process of applying to medicaid (up to 45 day process), or have the financial means to pay for assisted living facility. Pt. is appropriate for discharge. Best options likely to be HH or hospice and home with son Ian or prototype engineer automation test engineer with HH/hospice. Family can be assisted with Medicaid process outpatient if family willing to accept pt. home.
--- NOTE | 2021-02-02 16:21 | NUR ---
Requested to be present on teleconference from Radha's room with her son Ian and Mirna Fraser HH/hospice liason. Discussed options for discharge including HH vs. hospice. Current recommendation from therapy is home with HH. Son Ian is asking if rehab is an option and it appears at this time she does not meet criteria for SHF per rehab notes. Ian is asking about caregiver assistance in the home in addition to his brother, Joao, who lives with Radha. Bria has provided Ian with information on local in home care giving agencies. Discussed the differences between HH and hospice. Answered questions. Radha sat quietly appearing to listen. It appears that she may not be able to make the decision for herself. Ian would like to defer to Radha. Ian states he will call his mother and they will discuss options before they make a decision for discharge. Bria will have JOSE MARTIN Cardona dc coordinator get in touch with Ian this afternoon. PC to follow for assistance on advanced care planning and symptom management.
--- NOTE | 2021-02-02 16:57 | NUR ---
Alert and oriented x2 , with forgetfulness. Denies any pain. Vital signs are stable.Declined Senna and docusate this morning.Continue on eliqius , no bleeding noted.Took meds with applesauce. One person assist with transfer and bed moblility. Was up in the chair at the bedside. Denies any SOB , dizziness, headache. or nausea. will continue to monitor.
--- NOTE | 2021-02-02 17:21 | NUR ---
Received F/U call from [facility] advising that family would like to think about options overnight and decide tomorrow. Likely that pt. will discharge to home with family and HH/hospice. At the time their maintenance services dispatcher can assist pt. family with Medicaid process and potentially assisted living.
--- NOTE | 2021-02-03 04:13 | NUR ---
Shift Summary Pt admitted for afib rvr. Pt code status is DNR. The plan is to find possible placement for discharge. No significant changes throughout this shift.
[2021-02-03 06:32] LABS: BASOPHILS ABSOLUTE AUTO 0.03 K/mm3 (0.00-0.23); BASOPHILS PERCENT AUTO 0 % (0-2); Hematocrit 44.4 % (33.0-51.0); Hemoglobin 14.2 g/dL (11.5-16.0); LYMPHOCYTES ABSOLUTE AUTO 0.74 K/mm3 (0.84-5.20); LYMPHOCYTES PERCENT AUTO 9 % (21-46); MONOCYTES ABSOLUTE AUTO 0.53 K/mm3 (0.16-1.47); MONOCYTES PERCENT AUTO 6 % (4-13); Mean Corpuscular Volume 94 fL (80-100); Mean Platelet Volume 12.9 fL (9.1-12.4); RDW Coefficient Variation 15.6 % (11.7-14.2); Red Blood Cell Count 4.74 M/mm3 (3.80-5.20); White Blood Cell Count 8.26 K/mm3 (4.00-11.30)
[2021-02-03 06:38] LABS: EOSINOPHILS ABSOLUTE AUTO 0.05 K/mm3 (0.00-0.68); EOSINOPHILS PERCENT AUTO 1 % (0-6); IMMATURE GRAN ABSOLUTE AUTO 0.08 K/mm3 (0.00-0.10); IMMATURE GRAN PERCENT AUTO 1 % (0-1); NEUTROPHILS ABSOLUTE AUTO 6.83 K/mm3 (1.96-9.15); NEUTROPHILS PERCENT AUTO 83 % (41-73); Platelet Count 81 K/mm3 (150-400)
[2021-02-03 07:26] LABS: BASOPHILS PERCENT MAN 0 % (0-2); EOSINOPHILS PERCENT MAN 0 % (0-6); LYMPHOCYTES ABSOLUTE MAN 0.99 K/mm3 (0.84-5.20); LYMPHOCYTES PERCENT MAN 12 % (21-46); MONOCYTES ABSOLUTE MAN 0.24 K/mm3 (0.16-1.47); MONOCYTES PERCENT MAN 3 % (4-13); MYELOCYTE ABSOLUTE MAN 0.08 K/mm3 (0.00-0.00); MYELOCYTE PERCENT MAN 1 % (0-0); NEUTROPHILS ABSOLUTE MAN 6.93 K/mm3 (1.96-9.15); SEG NEUTROPHILS PERCENT MAN 84 % (41-73); TOTAL CELLS COUNTED 100
[2021-02-03 07:28] LABS: Alanine Aminotransfer (ALT/SGP 57 U/L (12-78); Albumin/Globulin Ratio 0.7 (0.8-1.8); Alk Phos 95 U/L (50-136); Anion Gap 5 mmol/L (6-16); Aspartate Aminotrans (AST/SGOT 33 U/L (12-37); Bilirubin, Total 0.6 mg/dL (0.1-1.0); Blood Urea Nitrogen 24 mg/dL (8-24); Bun/Creatinine Ratio 40.1 (12.0-20.0); CO2, Blood 24 mmol/L (21-32); Calcium, Blood 7.6 mg/dL (8.5-10.1); Chloride, Blood 112 mmol/L (98-108); Digoxin (Lanoxin) 1.12 ug/mL (0.80-2.00); Globulin, Blood 2.7 g/dL (2.2-4.0); Glomerular Filtration Rate >60 (60-); Glucose, Blood 88 mg/dL (70-99); Magnesium, Blood 1.7 mg/dL (1.6-2.4); Potassium, Blood 4.1 mmol/L (3.5-5.5); Sodium, Blood 141 mmol/L (136-145); Total Protein, Blood 4.7 g/dL (6.4-8.2)
--- NOTE | 2021-02-03 14:13 | NUR ---
short theraputic visit wtih pt.
--- NOTE | 2021-02-03 18:50 | NUR ---
SHIFT SUMMARY PT AAO TO SELF AND SITUATION. FORGETUL AT TIMES. PLEASANT AND STABLE IN MOOD. NO C/O PAIN OR ANY DISCOMFORT THIS SHIFT. DENIES CP, SOB, OR N&V. PT REFUSED TO GET UP FROM BED THIS SHIFT, OFFERED MULTIPLE TIMES BY STAFF BUT CONTINUES TO REFUSE. EDUCATED ON IMPORTANCE OF MOBILITY AND PARTICIPATING IN THERAPEUTIC EXERCISES WITH THERAPY. BED AT LOWEST POSITION. CALL LIGHT WITHIN REACH.
--- NOTE | 2021-02-04 04:55 | NUR ---
SHIFT SUMMARY PT ADMITTED FOR A FIB RVR. PT CODE STATUS IS DNR. THE PLAN FOR THIS PT IS PLACEMENT. PT IS CURRENTLY OFF TELEMETRY. NO CHANGES THROUGHOUT THIS SHIFT. NO DISTRESS NOTED. PT DENIES PAIN. ALERT AND ORIENT TO SELF.
--- NOTE | 2021-02-04 16:18 | NUR ---
SHIFT SUMMARY NO ACUTE CHANGES NOTED TO PT THIS SHIFT. PT IS AAO TO SELF AND SITUATION. ABLE TO MAKE NEEDS KNOWN, PLEASANT AND COOPERATIVE TO CARE. NO C/O PAIN OR ANY DISCOMFORT. DENIES CP, SOB, OR N&V. VSS. BED AT LOWEST POSITION. CALL LIGHT WITHIN REACH.
--- NOTE | 2021-02-05 18:12 | NUR ---
Alert and oriented x1, One person assist with ADLS. took meds crushed with applesauce. Denies any pain, SOB and dizziness or headache noted. Plan is to place at SNF. Vital signs are stable. Continue to monitor.
--- NOTE | 2021-02-06 06:52 | NUR ---
NO ACUTE CHANGES/ OR SIGNIFICANT OCCURENCES NOTED OVERNIGHT
--- NOTE | 2021-02-06 14:15 | NUR ---
PATIENT ASSESMENT PERFORMED. PATIENT ALERT, QUIET, COOPERATIVE AND APPROPRIATE WITH SIMPLE QUESTIONS. LUNGS CTA AFTER ENCOURAGING PATIENT TO COUGH. BTX4. 2-3+ PITTING EDEMA TO LOWER EXTREMITIES. LOWER EXTREMITIES COOL TO TOUCH. IV TO RIGHT FA PATIENT WITH DRESSING PRESENT. EDEMA NOTED TO AREA BELOW RIGHT ELBOW. THE PREVIOUS NURSE WAS CONTACTED AND STATED THAT SHE WASN'T AWARE OF IT. WILL CONTINUE TO MONTIOR AND COMMUNICATE TO ONCOMING STAFF TO CONTINUE AND MONITOR. HOB ELEVATED, KNEES FLEXED, UPPER RAILS UP AND CALL LIGHT WITHIN REACH.
--- NOTE | 2021-02-06 15:20 | NUR ---
TRANSFER PATIENT TRANSFERED TO [facility]. REPORT GIVEN TO JUSTEN HOGAN RN. BELONGINGS SENT WITH PATIENT.
--- NOTE | 2021-02-06 15:20 | NUR ---
PATIENT BROUGHT TO UNIT VIA GURNEY. PATIENT TRANSFERED TO BED VIA 2 PERSON, PIVOT TRANSFER ASSIST. PATIENT WEAK AND NOT ABLE TO HELP MUCH. PATIENT WAS INCONTINENT OF BM UPON ARRIVAL TO [facility]. PATIENT CLEANED AND TUCKED INTO BED. NO COMPLAINTS OR S/S OF DISTRESS. UPPER RAILS UP AND CALL LIGHT WITHIN REACH.
--- NOTE | 2021-02-06 19:18 | NUR ---
PATIENT HAS BEEN RESTING IN BED WATCHING TV. ANWERS SIMPLE QUESTIONS APPROPRIATELY. PT RECALLS THIS NURSE CUTTING THE TOP OF HER SOCKS DUE TO HER LOWER EXTREMITY EDEMA. PATIENT W/O S/S DISTRESS OR DISCOMFORT. BEDRAILS UP AND CALL LIGHT WITHIN REACH. REPORT GAVE TO ONCOMING RN.
--- NOTE | 2021-02-06 22:23 | NUR ---
NIGHTTIME ROUND PT IS RESTING IN BED WITH EYES CLOSED. HOB ELEVATED. CALL LIGHT IN REACH. NO NEEDS AT THIS TIME.
--- NOTE | 2021-02-07 01:32 | NUR ---
pt awake on nurse rounds PT AWOKE AT APPROXIMATELY 1215 AND STATED THAT SHE FELT THOUGH SHE SLEPT THE WHOLE NIGHT. PT IS UNABLE TO GO BACK TO SLEEP. RN OFFERRED HOT TEA AND A TABLET TO WATCH TV. PT READJUSTED IN BED FOR COMFORT. HOB ELEVATED PER PT'S REQUEST. PT ALERT AND ORIENTED X3. PT DENIES PAIN OR NEEDS AT THIS TIME. WATER IN REACH. CALL LIGHT IN REACH.
--- NOTE | 2021-02-07 02:53 | NUR ---
NIGHT NURSE ROUNDS PT IS APPEARS TO BE SLEEPING AT THIS TIME. SHE IS RESTING WITH EYES CLOSED. PT CONTINUES TO HAVE TV AND BEVERAGE AT BEDSIDE. CALL LIGHT IN REACH. NO NEEDS AT THIS TIME.
--- NOTE | 2021-02-07 04:22 | NUR ---
ATTENDS CHANGE/REPOSITION RN AND MA ASSISTED PT WITH ATTENDS CHANGE. PT HAD VOIDED IN HER ATTENDS. RED RASH IN THE LIZ AREA NOTED. LIZ AREA CLEANED AND BARRIER CREAM PLACED IN THE LIZ AREA. PT ASSISTED ONTO HER LATERAL RIGHT SIDE TO TAKE THE PRESSURE OFF HER BACK. PAS ON AND RUNNING. PT TOLERATED PO FLUIDS WELL. CLEAN GOWN, EXTRA PILLOWS, AND BEDDING PROVIDED. CALL LIGHT IN REACH. PT VERBALIZED UNDERSTANDING ON HOW TO USE THE CALL LIGHT. PT REQUEST LIGHTS DIMMED SO SHE CAN REST.
--- NOTE | 2021-02-07 05:25 | NUR ---
SHIFT SUMMARY PT SLEPT OFF AND ON THROUGHOUT THE NIGHT. PT DENIED PAIN AND NAUSEA. PT TOLERATED PO FLUIDS AND SNACKS WELL. PT ALERT AND ORIENTED X3 THROUGHOUT THE NIGHT. DURING ATTENDS CHANGE, RASH IN THE LIZ AREA WAS NOTED AND TREATED BY RN. PT IS SLEEPING NOW WITH CALL LIGHT AND BEVERAGE IN REACH. BED IS IN THE LOWEST, LOCKED POSITON.
--- NOTE | 2021-02-07 09:06 | NUR ---
PT HAS TROUBLE GETTING PILLS DOWN. USED PUDDING TO ASSIST, BUT STILL HAD TROUBLE, TOOK A BIT OF TIME AND EFFORT ON HER PART.
--- NOTE | 2021-02-07 15:34 | NUR ---
I HAD DIFFICULTY WITH GETTING HER SPO2 AND HR DUE TO THE PTS FINGERS BEING COLD. HER RIGHT HAND WAS PLACED ON TOP OF A HEAT PACK WHICH AFTER SEVERAL MINUTES WARMED HER FINGERS UP ENOUGH TO GET AN ACCURATE SP02 AND HR. PT WANTED TO KEEP THE HEAT PACK AND HOLD IT DUE TO FEELING COLD.
--- NOTE | 2021-02-07 22:23 | NUR ---
PATIENT RESTING QUIETLY, CALL LIGHT WITHIN REACH.
--- NOTE | 2021-02-08 01:39 | NUR ---
PATIENT AWAKE, WANTING TO WATCH IPAD. CALL LIGHT WITHIN REACH.
--- NOTE | 2021-02-08 05:01 | NUR ---
PATIENT SLEPT AT THE BEGINNING OF SHIFT, AWOKE AROUND 0100 AND WANTED TO WATCH IPAD. PATIENT HAD NO COMPLAINTS THIS SHIFT. CALL LIGHT HAS BEEN WITHIN REACH THROUGHOUT SHIFT.
--- NOTE | 2021-02-08 10:56 | NUR ---
PT ALERT, ORIENTED AND PLEASANT TODAY. PT BREAKFAST INTAKE WAS 75%. BEDBATH DONE THIS MORNING WITH RN AND CLINICAL APPLICATIONS SPECIALIST ASSIST. PT PROPPED TO ONE SIDE WITH PILLOW AND WILL RE-POSITION FREQUENTLY TO PREVENT PRESSURE SORES. WHEN ASKED THIS MORNING TO HELP TURN ON ONE SIDE, PT STATES "I'M FROZEN". RN HELP PT WITH ROM ON BOTH UPPER EXTREMETIES AND BILATERAL LOWER EXTREMETIES. PT ALSO C/O PAIN ON HER LEFT HEEL. SOCKS REMOVED AND REDNESS ON BILATERAL HEEL PRESENT. NO SIGNS OF OPEN SORE. PILLOW PLACED UNDER BOTH ANKLES TO HELP RELIEF PRESSURE. HEEL CUSHIONS PLACED BILATERALLY TO HELP WITH PRESSURE SORE. DEPENDS CHANGED, AND WHEN RN ASKED IF SHE IS ABLE TO VOICE OUT/OR AWARE WHEN HER DEPENDS IS WET, PT STATES SOMETIMES SHE DOESN'T KNOW IF SHE'S WET. RN ASSURED PT THAT WE WILL CHECK HER EVERY 2HOURS TO HELP TURN, RE-POSITION AND CHANGE DEPENDS. PT WAS ABLE TO BRUSH HER TEETH AND FLOSS THIS MORNING. HAIR WAS WASHED WITH SHAMPOO CAP BY RN AND WET WASH CLOTH WAS PROVIDED FOR HER FACE. PT WAS VERY GRATEFUL FOR THE CARE. BILATERAL SCD'S PLACED. PT HAS EDEMA ON BOTH LOWER LEGS AND FEET. RN ENCOURAGED PT TO TRY AND TEACHER OF THE DEAF HER ANKLES AND LEGS MUCH POSSIBLE. PT COMMUNICATES CLEARLY. AFTER MORNING CARE. PT REQUEST TO WATCH IPAD. CALL LIGHT WITHIN REACH. WARM BLANKETS PROVIDED AND HEAT PACK. WILL CONTINUE TO MONITOR.
--- NOTE | 2021-02-08 11:49 | NUR ---
Last Note : 02/08/21- spoke with pt's son Joao regarding the discharge plan. He states that prior to pt coming into the hospital, she was independent at home and has a son that lives with her. There were some caregivers who came into the home but they no longer have them. Son Ian says that he is the POA for finance and medical and is also listed as NOK along with his brother Joao. Ian would like his mom to go to SNF and then have her reside there long-term. 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 We also discussed different options such as pt doing well in SNF and could she go home with home health and caregivers. Another option would be for him to call various care homes in town and see if he would like her to go into one of them after rehab. Provided him a list of facilities here in [facility] and their phone numbers for him to call. Ian asked that his mom be updated on the plan by ad copy writer. Attempted to reach her and she was in the middle of getting a bath, nurse will have them call back when done. Will fax packet over to [facility] to start the reveiw process. -zuleima ([email or web address], 11:45 AM)
--- NOTE | 2021-02-08 12:08 | NUR ---
LATE ENTRY: DR. FRANCIS SAUCEDO HERE AT AROUND 11:45 TO SEE PT. SEVERAL NEW ORDERS GIVEN. DR. SAUCEDO OK TO HAVE PATIENT USE INCENTIVE SPIROMETER WHILE HERE AT [facility]. PT OK TO HAVE HEEL CUSHION. DISCONTINUED BILATERAL SCD'S, NEW ORDER FOR COMPRESSION STOCKING GIVEN FOR BILATERAL LEGS. DR. SAUCEDO ALSO ORDERED NYSTATIM CREAM INSTEAD OF NYSTATIN POWDER TO GROIN FOR RASH. PER DR. SAUCEDO, PT WILL BENEFIT TO HAVING VENTURA CATHETER FOR INCONTINENCE AND TO HELP HEAL HER RASH ON THE GROIN AREA. CALL LIGHT WITHIN REACH. WILL CONTINUE TO MONITOR.
--- NOTE | 2021-02-08 14:21 | NUR ---
PT RESTING, PT HAD A SMALL, LOOSE, BOWEL MOVEMENT. PT CHANGED. PT DENIES PAIN AND N/V. PHYSICAL THERAPY IN ROOM AT THIS TIME TO SEE PT. CALL LIGHT WITHIN REACH.
--- NOTE | 2021-02-08 14:23 | NUR ---
WHILE CHANGING PT'S DEPENDS DUE TO BM, RN NOTICED PT'S LEFT INNER THIGH IS SLIGHTLY FIRMIR COMPARED TO RIGHT INNER THIGH. PT DENIES ANY PAIN AT THE SITE UPON PALPATION. WILL REPORT TO MD AND WILL CONTINUE TO MONITOR.
--- NOTE | 2021-02-08 14:53 | NUR ---
IN THE ROOM AT THIS TIME TO SEE PATIENT.
--- NOTE | 2021-02-08 15:24 | NUR ---
Spiritual care visit conducted. Patient immediately shares about her failing health and the loss of her of 69yrs (she stated that he 2yrs ago of Alzheimer's Disease). She shares, "I just don't care anymore about what happens to me. I want a good peaceful place to be in for now. I am exhausted. I want to be with my . I have great memories and feelings about the wonderful life I have lived and have peace about my future, I am comfortable." She tells me that she is not samaritan but is a Pentecostal who believes in God. She talks about her three sons and that she is proud of them and glad that they are near in a time like this. I normalize patient's experience, explore sources of meaning, and provide therapeutic listening, pastoral aids counselor and prayer. Patient responds well and shows signs of being encouraged and comforted. I will continue to remain available to patient and family.
[2021-02-08] MEDS ORDERED: Acetaminophen650 M1 PO (15:47)
[2021-02-08] MEDS ORDERED: BISA10S PR (15:50)
[2021-02-08] MEDS ORDERED: DULCOLAX400 MG/51 PO (15:51)
[2021-02-08] MEDS ORDERED: NYSTRIT TOP (15:52)
[2021-02-08] MEDS ORDERED: Acetaminophen325 M1 PO (15:53)
[2021-02-08] MEDS ORDERED: ELIQUIS2.5 MG PO (15:53)
[2021-02-08] MEDS ORDERED: METOPROLOL TART PO (15:55)
[2021-02-08] MEDS ORDERED: SENN187 PO (15:58)
[2021-02-08] MEDS ORDERED: ONDA4 PO (15:58)
[2021-02-08] MEDS ORDERED: 1/2 NS 250ml250 ML (15:58)
--- NOTE | 2021-02-08 16:37 | NUR ---
PT RESTING AT THIS TIME. PT IS NOW AWARE THAT SHE IS GOING TO [facility] TODAY. PT CLOTHES ARE ON. PT WILL GO WITH VENTURA CATHETER. WAITING FOR [facility] TO ARRIVE.
--- NOTE | 2021-02-08 16:46 | NUR ---
RN WAITING A CALL BACK FROM [facility] CONCERNING PT'S DISCHARGE.
--- NOTE | 2021-02-08 17:19 | NUR ---
REPORT GIVEN TO EDUARD AT [facility]. STILL WAITING FOR [facility] TO COME ETHOLOGIST PT. CALL LIGHT WITHIN REACH. WILL CONTINUE TO MONITOR. PT EATING DINNER AT THIS TIME.
--- NOTE | 2021-02-08 18:51 | NUR ---
PT ALERT THROUGHOUT THE DAY. PT WAS RE-POSITIONED EVERY TWO HOURS. VENTURA CATHETER PLACED TODAY TO HELP WITH INCONTINENCE. PT DID HAVE BOWEL MOVEMENTS X3 TODAY. HEEL CUSHIONS PLACED TO HELP WITH PREASSURE POINTS. PT TRANSFERRED TO [facility] AT AROUND 1843 THIS EVENING VIA [facility]. PT WAS CLEANED PRIOR TO TRANSPORT. ALL PT BELONGINGS WAS RETURNED TO PT PRIOR TO DISCHARGE.
--- NOTE | 2021-02-08 23:06 | NUR ---
This tag writer was in pt chart to find discharge med sheet not sent with pt to [facility] at discharge.
== END 2021-02-08 18:45 | disposition home or self-care (01) | DRG 280 ==
LOC: ER 13:55 → ERHOLD 19:53 → SURS 19:53 → MEDS 19:53 → SURS 22:34 → MEDS 01-28 12:01 → ORSCIP 02-06 15:15
PROVIDERS: Emergency Medicine; Family Medicine; Internal Medicine Gastroenterology; Student in an Organized Health Care Education/Training Program; ADMIT Hospitalist
DX: I48.91 Unspecified atrial fibrillation (principal); I50.23 Acute on chronic systolic (congestive) heart failure; I21.A1 Myocardial infarction type 2; G93.41 Metabolic encephalopathy; N17.9 Acute kidney failure, unspecified; G45.9 Transient cerebral ischemic attack, unspecified; K62.5 Hemorrhage of anus and rectum; N39.0 Urinary tract infection, site not specified; E87.0 Hyperosmolality and hypernatremia; I11.0 Hypertensive heart disease with heart failure; Z66 Do not resuscitate; I34.0 Nonrheumatic mitral (valve) insufficiency; B37.2 Candidiasis of skin and nail; R32 Unspecified urinary incontinence; E86.0 Dehydration; D69.6 Thrombocytopenia, unspecified; Z20.822 Contact with and (suspected) exposure to COVID-19; M81.0 Age-related osteoporosis without current pathological fracture; Z98.890 Other specified postprocedural states; Z90.710 Acquired absence of both cervix and uterus; Z88.2 Allergy status to sulfonamides; Z88.0 Allergy status to penicillin; Z88.8 Allergy status to other drugs, medicaments and biological substances; Z88.5 Allergy status to narcotic agent; I25.10 Atherosclerotic heart disease of native coronary artery without angina pectoris; I25.2 Old myocardial infarction; Z86.73 Personal history of transient ischemic attack (TIA), and cerebral infarction without residual deficits; G47.00 Insomnia, unspecified; Z98.42 Cataract extraction status, left eye; Z98.41 Cataract extraction status, right eye; F17.210 Nicotine dependence, cigarettes, uncomplicated; D64.9 Anemia, unspecified; L30.8 Other specified dermatitis
CPT/HCPCS: 36415; 36416; 70450; 70551; 71045; 80048; 80053; 80162; 81001; 83735; 84145; 84484; 85025; 85027; 85379; 87077; 87086; 87186; 93308; 93321; 96365; 96366; 96375; 97110; 97116; 97161; 97166; 97530; 97535; 99285-25; A9270; J0696; J3480; J7030; J7120; P9612; U0004

== ENCOUNTER 2021-02-16 10:41 | Emergency (ER) | payer MEDICARE ==
[~2021-02-16] VITALS: Ht 157.5 cm; Wt 49.9 kg
[~2021-02-16 10:41] MED LIST changes: +1/2 NS 250ml250 ML; +Acetaminophen325 M1 PO; +Acetaminophen650 M1 PO; +BISA10S PR; +DULCOLAX400 MG/51 PO; +ELIQUIS2.5 MG PO; +ELIQUIS5 M2 PO; +METOPROLOL TART PO; +NYSTRIT TOP; +ONDA4 PO; +SENN187 PO
[2021-02-16 11:14] LABS: BASOPHILS ABSOLUTE AUTO 0.05 K/mm3 (0.00-0.23); BASOPHILS PERCENT AUTO 1 % (0-2); EOSINOPHILS ABSOLUTE AUTO 0.02 K/mm3 (0.00-0.68); EOSINOPHILS PERCENT AUTO 0 % (0-6); Hematocrit 43.3 % (33.0-51.0); Hemoglobin 13.5 g/dL (11.5-16.0); IMMATURE GRAN PERCENT AUTO 1 % (0-1); LYMPHOCYTES PERCENT AUTO 7 % (21-46); MONOCYTES ABSOLUTE AUTO 0.47 K/mm3 (0.16-1.47); MONOCYTES PERCENT AUTO 5 % (4-13); Mean Corpuscular HGB 29.8 pg (26.0-34.0); Mean Corpuscular HGB Conc 31.2 g/dL (31.5-36.5); Mean Corpuscular Volume 96 fL (80-100); Mean Platelet Volume 11.1 fL (9.1-12.4); NEUTROPHILS ABSOLUTE AUTO 8.98 K/mm3 (1.96-9.15); NEUTROPHILS PERCENT AUTO 87 % (41-73); Platelet Count 292 K/mm3 (150-400); RDW Coefficient Variation 16.5 % (11.7-14.2); RDW Standard Deviation 57.5 fL (35.1-46.3); Red Blood Cell Count 4.53 M/mm3 (3.80-5.20); White Blood Cell Count 10.32 K/mm3 (4.00-11.30)
[2021-02-16 11:38] LABS: Anion Gap 5 mmol/L (6-16); Blood Urea Nitrogen 23 mg/dL (8-24); Bun/Creatinine Ratio 41.2 (12.0-20.0); CO2, Blood 28 mmol/L (21-32); Calcium, Blood 8.5 mg/dL (8.5-10.1); Chloride, Blood 111 mmol/L (98-108); Creatinine, Blood 0.56 mg/dL (0.40-1.00); Glomerular Filtration Rate >60 (60-); Glucose, Blood 146 mg/dL (70-99); Magnesium, Blood 1.9 mg/dL (1.6-2.4); Potassium, Blood 4.3 mmol/L (3.5-5.5); Sodium, Blood 144 mmol/L (136-145)
[2021-02-16 11:40] LABS: Troponin I <0.015 ng/mL (0.000-0.040)
[2021-02-16 12:45] LABS: SARS-Cov-2 (COVID-19) PCR, MMC NEGATIVE (NEGATIVE)
== END 2021-02-16 16:37 | disposition home or self-care (01) ==
LOC: ER 10:41
PROVIDERS: Student in an Organized Health Care Education/Training Program
DX: I11.0 Hypertensive heart disease with heart failure (principal); I50.9 Heart failure, unspecified; I48.91 Unspecified atrial fibrillation; F17.200 Nicotine dependence, unspecified, uncomplicated; Z88.0 Allergy status to penicillin; Z88.2 Allergy status to sulfonamides; Z88.8 Allergy status to other drugs, medicaments and biological substances; Z79.899 Other long term (current) drug therapy; Z79.01 Long term (current) use of anticoagulants; Z86.73 Personal history of transient ischemic attack (TIA), and cerebral infarction without residual deficits
CPT/HCPCS: 71045; 80048; 83735; 83880; 84484; 85025; 93005; 93010; 96365; 96375; 96376; 99285-25; J1940; J3475; U0004

== ENCOUNTER 2021-02-24 23:41 | Inpatient (IN) | payer MEDICARE ==
[~2021-02-24] VITALS: Ht 160 cm; Wt 53.2 kg
[2021-02-25 00:23] LABS: BASOPHILS ABSOLUTE AUTO 0.04 K/mm3 (0.00-0.23); BASOPHILS PERCENT AUTO 0 % (0-2); EOSINOPHILS ABSOLUTE AUTO 0.01 K/mm3 (0.00-0.68); EOSINOPHILS PERCENT AUTO 0 % (0-6); Hematocrit 43.6 % (33.0-51.0); Hemoglobin 13.3 g/dL (11.5-16.0); IMMATURE GRAN ABSOLUTE AUTO 0.11 K/mm3 (0.00-0.10); IMMATURE GRAN PERCENT AUTO 1 % (0-1); LYMPHOCYTES ABSOLUTE AUTO 1.02 K/mm3 (0.84-5.20); LYMPHOCYTES PERCENT AUTO 9 % (21-46); MONOCYTES ABSOLUTE AUTO 0.68 K/mm3 (0.16-1.47); MONOCYTES PERCENT AUTO 6 % (4-13); Mean Corpuscular HGB 29.7 pg (26.0-34.0); Mean Corpuscular HGB Conc 30.5 g/dL (31.5-36.5); Mean Corpuscular Volume 97 fL (80-100); Mean Platelet Volume 11.6 fL (9.1-12.4); NEUTROPHILS ABSOLUTE AUTO 8.97 K/mm3 (1.96-9.15); NEUTROPHILS PERCENT AUTO 83 % (41-73); Platelet Count 198 K/mm3 (150-400); RDW Coefficient Variation 17.1 % (11.7-14.2); RDW Standard Deviation 61.1 fL (35.1-46.3); Red Blood Cell Count 4.48 M/mm3 (3.80-5.20); White Blood Cell Count 10.83 K/mm3 (4.00-11.30)
[2021-02-25 00:42] LABS: Alanine Aminotransfer (ALT/SGP 115 U/L (12-78); Albumin, Blood 2.8 g/dL (3.4-5.0); Albumin/Globulin Ratio 0.9 (0.8-1.8); Alk Phos 174 U/L (50-136); Anion Gap 3 mmol/L (6-16); Aspartate Aminotrans (AST/SGOT 82 U/L (12-37); Bilirubin, Total 0.7 mg/dL (0.1-1.0); Blood Urea Nitrogen 32 mg/dL (8-24); Bun/Creatinine Ratio 37.2 (12.0-20.0); CO2, Blood 41 mmol/L (21-32); Calcium, Blood 8.6 mg/dL (8.5-10.1); Chloride, Blood 102 mmol/L (98-108); Creatinine, Blood 0.86 mg/dL (0.40-1.00); Globulin, Blood 3.2 g/dL (2.2-4.0); Glomerular Filtration Rate >60 (60-); Glucose, Blood 134 mg/dL (70-99); Magnesium, Blood 1.9 mg/dL (1.6-2.4); Potassium, Blood 3.7 mmol/L (3.5-5.5); Sodium, Blood 146 mmol/L (136-145); Troponin I 0.088 ng/mL (0.000-0.040)
[2021-02-25 03:34] LABS: Digoxin (Lanoxin) 0.12 ug/mL (0.80-2.00)
[2021-02-25] MEDS ORDERED: POTCHL20ER PO (05:20)
[2021-02-25] MEDS ORDERED: ELIQUIS2.5 MG PO (05:21)
[2021-02-25] MEDS ORDERED: FURO20 PO (05:22)
--- NOTE | 2021-02-25 06:14 | NUR ---
SHIFT SUMMARY PT ARRIVED VERY LETHARGIC. HAS BEEN UNABLE TO COMMUNICATE WITH STAFF. PT'S VITALS ARE STABLE AT THE TIME AND IS ON BIPAP 16/8 10L O2 BLEEDIN WITH SATS OF 96%. PT'S SKIN IS VERY FRAGILE. PT HAS A RASH WITH BREAKDOWN IN LIZ AREA, BILATERAL LOWER EXTREMETY EDEMA. PER TELE PT IS AFIB AT 100. PT IS BEDREST AT THIS TIME WITH BED ALARM ACTIVATED. CALL LIGHT IS WITHIN REACH.
[2021-02-25 06:58] LABS: SARS-Cov-2 (COVID-19) PCR, MMC NEGATIVE (NEGATIVE)
[2021-02-25 08:51] LABS: BASOPHILS ABSOLUTE AUTO 0.04 K/mm3 (0.00-0.23); BASOPHILS PERCENT AUTO 1 % (0-2); EOSINOPHILS PERCENT AUTO 0 % (0-6); Hematocrit 36.8 % (33.0-51.0); IMMATURE GRAN ABSOLUTE AUTO 0.17 K/mm3 (0.00-0.10); IMMATURE GRAN PERCENT AUTO 2 % (0-1); LYMPHOCYTES ABSOLUTE AUTO 0.82 K/mm3 (0.84-5.20); LYMPHOCYTES PERCENT AUTO 10 % (21-46); MONOCYTES ABSOLUTE AUTO 0.56 K/mm3 (0.16-1.47); MONOCYTES PERCENT AUTO 7 % (4-13); Mean Corpuscular HGB 30.1 pg (26.0-34.0); Mean Corpuscular HGB Conc 29.9 g/dL (31.5-36.5); Mean Corpuscular Volume 101 fL (80-100); NEUTROPHILS ABSOLUTE AUTO 6.39 K/mm3 (1.96-9.15); NEUTROPHILS PERCENT AUTO 80 % (41-73); Platelet Count 151 K/mm3 (150-400); RDW Standard Deviation 63.2 fL (35.1-46.3); Red Blood Cell Count 3.66 M/mm3 (3.80-5.20); White Blood Cell Count 7.98 K/mm3 (4.00-11.30)
[2021-02-25 09:05] LABS: Alanine Aminotransfer (ALT/SGP 103 U/L (12-78); Albumin, Blood 2.7 g/dL (3.4-5.0); Alk Phos 135 U/L (50-136); Anion Gap 1 mmol/L (6-16); Aspartate Aminotrans (AST/SGOT 75 U/L (12-37); Bilirubin, Total 0.6 mg/dL (0.1-1.0); Blood Urea Nitrogen 33 mg/dL (8-24); Bun/Creatinine Ratio 37.6 (12.0-20.0); CO2, Blood 41 mmol/L (21-32); CPK Creatine Kinase 41 U/L (26-193); Calcium, Blood 8.2 mg/dL (8.5-10.1); Chloride, Blood 105 mmol/L (98-108); Creatinine, Blood 0.88 mg/dL (0.40-1.00); Globulin, Blood 2.6 g/dL (2.2-4.0); Glomerular Filtration Rate >60 (60-); Glucose, Blood 86 mg/dL (70-99); Potassium, Blood 3.7 mmol/L (3.5-5.5); Sodium, Blood 147 mmol/L (136-145); Total Protein, Blood 5.3 g/dL (6.4-8.2); Troponin I 0.381 ng/mL (0.000-0.040)
--- NOTE | 2021-02-25 16:47 | NUR ---
Comfort care visit: Radha is an 89 year old with a history of HTN, osteoporosis, CHF, TIA, mitral regurgitation. She was recently at SNF for rehab and had AMS. She was taken to the hospital and found to be in a-fib with RVR and a possible pneumonia. She was placed on comfort care this morning when she was still with AMS and requiring bipap. This afternoon Radha is awake. She is on O2 via NC at 6 liters. She is awake and eating a yogurt this afternoon. Her sons are at bedside Ian and Joao and are amazed that she is awake and talking with them. They were expecting to say their goodbyes this afternoon. Ian is from out of the area and drove to get here this afternoon. Joao, another son, lives with Radha. Dr. Meyer came to pt's room and spoke with sons prior to this handbook writer's arrival. Plan is to remain comfort care at this time. Pt's POLST, DNR with comfort measures is copied and placed on her chart. This POLST was completed and signed by Radha in 2019. Joao reports that at baseline, Radha is mostly bed/chair bound. He expresses that he will not be able to care for her in their home. He is interested in finding placement for her with hospice services. Explained hospice and answered questions. Also explained that placement costs are not covered by hospice and would be the responsibility of the family. They voice understanding of this. Ian and Joao would like to have a meeting with CM tomorrow at 1100 to discuss discharge planning and possible placement. Will notify CM and PC nurses that will be working tomorrow. Radha has no complaints or requests at this time. Encouraged family to spend time with Radha as she is awake and alert. PC will continue to follow. Plan for meeting with family and CM tomorrow at 1100.
--- NOTE | 2021-02-25 16:56 | NUR ---
SHIFT SUMMARY PT A&OX2/BASELINE, VSS, INCONTINENT/ATTENDS ON, SL, ANSWERING QUESTIONS APPROPRIATELY, FAMILY AT BEDSIDE. EFM PROVIDER AND PALLIATIVE CARE RN HAVE MET WITH FAMILY, NEW COMFORT CARE ORDERS IN WITH PLAN FOR PT AND FAMILY TO MEET WITH HEALTH CAREERS INSTRUCTOR TO MAKE LONG-TERM PLACEMENT ARRANGEMENTS. POLST COPY ON CHART. WILL REPORT TO NEXT RN.
--- NOTE | 2021-02-26 06:09 | NUR ---
SHIFT SUMMARY A/O TO SELF AND FAMILY. PLEASANTLY CONFUSED, SLEPT T/O THE NIGHT. INCONT, ATTENDS IN PLACE WITH EXCORIATIONS TO LIZ AREA AND BOTTOM. COMFORT CARE MEASURES IN PLACE, Q2 REPOSITIONING AND ORAL CARE PRN. BED IN LOWEST POSITION, ALARM ON, CALL LIGHT IN REACH. WILL CONTINUE TO MONITOR AND REPORT TO ONCOMING RN.
--- NOTE | 2021-02-26 09:51 | NUR ---
DR MARTINEZ IN TO SEE PT.
--- NOTE | 2021-02-26 11:11 | NUR ---
FAMILY AT BEDSIDE. NOTIFED LATISHA FROM PALLIATIVE CARE AND DR MARTINEZ OF FAMILY'S PRES[facility].
--- NOTE | 2021-02-26 11:16 | NUR ---
DR MARTINEZ IN TO SEE PT/FAMILY.
--- NOTE | 2021-02-26 12:42 | NUR ---
REPORT GIVEN TO MERY Wallace RN. PT'S SON SPEAKING ON PHONE AT THIS TIME. NOTIFIED PT AND SON'S S.O. THAT PATIENT WILL BE TRANSFERRED TO ROOM 207.
--- NOTE | 2021-02-26 12:58 | NUR ---
PT TRANSFERRED TO 207. FAMILY AT BEDSIDE.
--- NOTE | 2021-02-26 13:09 | NUR ---
REPORT RECEIVED FROM GEOVANNY NOVA
--- NOTE | 2021-02-26 17:05 | NUR ---
SUMMARY: NO ACUTE CHANGE SINCE PT TRANSFER TO ROOM 207. PT ON COMFORT CARE, ATTENDS CHANGED AND PT REPOSITIONED PRN,Q2. PT DENIES PAIN/NAUSEA, DECREASED APPETITE. PT USING CALL LIGHT, BED ALARM ON FOR SAFETY. WILL CTM AND REPORT TO OLIVIA RN
--- NOTE | 2021-02-27 04:21 | NUR ---
SHIFT SUMMARY PT ADMITTED FOR ACUTE ENCEPHALOPATHY W/RVR. PT IS ON COMFORT CARE. PT IS A&O TO SELF AND CONFUSED. SHE IS VERY PLEASANT. DENIES PAIN, N/V. PT IS INCONTINENT W/ATTENDS IN PLACE. PT HAS BEEN RESTING IN BED. DOES NOT USE CALL LIGHT BUT WILL CALL OUT WHEN SHE NEEDS SOMETHING. CALL LIGHT IS WITHIN REACH AND PT HAS BEEN CHECKED ON FREQUENTLY THROUGHOUT SHIFT.
--- NOTE | 2021-02-27 07:17 | NUR ---
PT IS RESTING IN BED WATCHING TV. HOB ELEVATED AND PT REPORTS FEELING COMFORTABLE. SHE IS ORIENTED TO SELF, FOLLOWING DIRECTIONS, PLACE, AND THE YEAR. WILL CONTINUE TO MONITOR.
--- NOTE | 2021-02-27 10:05 | NUR ---
PT IS RESTING IN BED WATCHING SPORTS. ATTENDS CHANGED AND PT POSITIONED ONTO HER RIGHT SIDE. NO COMPLAINT OF PAIN. WILL CONTINUE TO MONITOR.
--- NOTE | 2021-02-27 12:22 | NUR ---
Update 02/27/21: Per chart review with Dr. Spencer, pt. appropriate for discharge once placement is secured. Some confusion regarding [facility] long-term vs. SNF. Pt. was at [facility] for skilled rehab. Attempted to reach out to [facility] with hospice as care coordination notes show that she discharged on hospice to SNF. I don't believe that she ended up receiving hospice care as she would have needed to be ICF and notes indicated that LTC placement was needed. Left message for [facility] to return call to discuss further. Spoke with patient's son Joao regarding care. He requested that I contact her other son Ian as he is in the process of becoming POA. Discussed LTC placement with Ian. He is agreeable that pt. is needing LTC facility even if discharging on hospice, as the family is not able to take pt. home. We discussed [facility]. Ian has spoke with the facility previously and is agreeable to placement there. He is working on coordinating the finances to be able to afford the facility. I have reached out to Emma with [facility]. We will work towards securing placement and setting a move in date. Ian requested assistance with expediting the POA process. We will work on this. Stephanie East
--- NOTE | 2021-02-27 18:03 | NUR ---
SHIFT SUMMARY PT HAD DENIED NEED FOR PAIN MEDICATION THIS SHIFT. PT HAS BEEN ALERT AND ORIENTED X2-3 THIS SHIFT. PT WATCHES TV, SHE ENJOYS FOOTBALL AND TV LAND. FAMILY VISITED PT THIS AFTERNOON. PALLIATIVE CARE SPOKE WITH PT AND FAMILY. PT HAS BEEN INCONTINENT AND IS USING ATTENDS. WILL MONITOR UNTIL REPORT TO NOC RN.
--- NOTE | 2021-02-27 18:21 | NUR ---
son has set up houseing for pt will get notary for them tomorrow. pt resting and enjoying her visit with her son.
--- NOTE | 2021-02-27 21:40 | NUR ---
PT REPORTED SOB. ELEVATED HEAD OF BED AND PT REPORTED IMPROVEMENT.
--- NOTE | 2021-02-28 04:34 | NUR ---
SHIFT SUMMARY PT ADMITTED FOR ACUTE ENCEPHALOPATHY W/RVR ON COMFORT CARE. COMFORT CARE ASSESSMENTS DONE Q 2 HOURS. PT HAS HAD RAPID BREATHING AND SOME SOB DURING SHIFT. MEDICATED PT PER EMAR AND O2 APPLIED FOR COMFORT. PT REMOVED O2 AND DECLINED TO HAVE REAPPLIED. REPOSITIONED PT Q 2 HOURS. PT HAS EXCORIATIONS IN LIZ-AREA, BARRIER CREAM APPLIED AND ATTENDS CHANGED FREQUENTLY. TOLERATING SIPS OF WATER. NO REPORT OF N/V. PLAN IS TO TRANSFER PT TO [facility]. PT APPEARS TO CURRENTLY BE RESTING IN BED. CALL LIGHT WITHIN REACH.
--- NOTE | 2021-02-28 10:07 | NUR ---
Spiritual care visit conducted. Patient's son, Ian is bedside and lovingly kissing and stroking patient's hair. He is tearful and welcoming of spiritual care and prayer. I conduct a life review and provide anticipatory grief support, a calming presence and prayer. A family member named Radha comes in and demisses spiritual care. I leave and allow family to have time with patient.
--- NOTE | 2021-02-28 10:54 | NUR ---
pt transitioning non reponsive repirations labored. notified her son of the changes he came in right away. pt requiring more roxinol. chaplian called to give prayer. Notified physician of changes.
--- NOTE | 2021-02-28 14:05 | NUR ---
SHIFT SUMMARY: ACUTE ENCEPHALOPATHY ON COMFORT CARE PATIENT IS NON-ARROUSABLE AT THIS POINT. FAMILY IS IN THE ROOM AT BEDSIDE AT THIS TIME. HER BREATHING HAS SLOWED DOWN BUT AT TIMES HAS INTERMITTENT SOB. PATIENT HAS BEEN MEDICATED PER EMAR AND IS ON 5L NC OXYGEN FOR COMFORT. SHE HAS BEEN REPOSITIONED AT LEAST EVERY TWO HOURS. PATIENT HAS NOT BEEN AWAKE TO EAT OR DRINK ANYTHING DURING THE SHIFT. PATIENT HAS ALSO BEEN GIVEN ATROPINE, THOUGH WAS NOT SUCCESSFUL, SO SHE HAS A TRANSERM PATCH ON THE BACK OF HER RIGHT EAR WHICH IS GOOD FOR 3 DAYS. CALL LIGHT IS WITHIN REACH OF THE FAMILY MEMBERS.
--- NOTE | 2021-02-28 15:20 | NUR ---
pt progressing longer periods of apnea. family at bedside interacting and at peace.
--- NOTE | 2021-02-28 17:06 | NUR ---
pt continues to progress, family at bedside.
--- NOTE | 2021-02-28 18:14 | NUR ---
Update 02/28/21: Per discussion with Katlyn in palliative care this am, patient likely to pass away soon. She is now non-responsive. Family is at bedside and palliative care involved in comfort care. Notified [facility] of update.
--- NOTE | 2021-02-28 19:11 | NUR ---
THIS RN WAS NOTIFIED BY SON AT BEDSIDE THAT HIS MOTHER "MAY HAVE PASSED". THIS RN WENT INTO THE ROOM AND LISTENED TO PATIENTS APICAL HEART FOR ONE FULL MINUTE WITH NO HEARTBEAT. TIME OF WAS DECLARED AT 181. PATIENTS SON SAID HIS GOODBYES WELL THE SON'S GIRLFRIEND THAT CAME IN AT 1820. THE PATIENTS SON AND GIRLFRIEND LEFT AT AROUND 1845. NURSE PAINTING TECHNICIAN MIRNA WAS NOTIFIED VIA [facility] CHARGE NURSE @ 1820. THIS RN HEARD BACK FROM DONOR TEAM WHO DENIED NEED OF EYES. CALLED MORES FROM [facility] AT 1930. MORES REPORTED THAT THEY WILL COME TAPPER HELPER THE BODY IN 30-35 MINUTES MAXIMUM.
== END 2021-02-28 20:29 ==
LOC: ER 23:41 → SURS 02-25 04:16 → PCU 02-25 04:16 → SURS 02-25 04:21
PROVIDERS: Student in an Organized Health Care Education/Training Program; ADMIT Internal Medicine
PROC: 5A09457 Assistance with Respiratory Ventilation, 24-96 Consecutive Hours, Continuous Positive Airway Pressure (ICD-10-PCS; principal; 2021-02-25)
DX: I11.0 Hypertensive heart disease with heart failure (principal); G93.41 Metabolic encephalopathy; I21.A1 Myocardial infarction type 2; J96.01 Acute respiratory failure with hypoxia; I48.19 Other persistent atrial fibrillation; F17.210 Nicotine dependence, cigarettes, uncomplicated; I50.23 Acute on chronic systolic (congestive) heart failure; I34.0 Nonrheumatic mitral (valve) insufficiency; Z20.822 Contact with and (suspected) exposure to COVID-19; E86.9 Volume depletion, unspecified; Z66 Do not resuscitate; Z51.5 Encounter for palliative care; E88.09 Other disorders of plasma-protein metabolism, not elsewhere classified; I95.2 Hypotension due to drugs; T46.1X5A Adverse effect of calcium-channel blockers, initial encounter; R62.7 Adult failure to thrive; M81.0 Age-related osteoporosis without current pathological fracture; Z88.2 Allergy status to sulfonamides; Z88.6 Allergy status to analgesic agent; Z88.0 Allergy status to penicillin; Z86.73 Personal history of transient ischemic attack (TIA), and cerebral infarction without residual deficits; Z90.710 Acquired absence of both cervix and uterus; Z98.890 Other specified postprocedural states
CPT/HCPCS: 36415; 70450; 71045; 80053; 80162; 82550; 83605; 83735; 83880; 84484; 85025; 93005; 93010; 94660; 96361; 96374; 96375; 99285-25; A9270; J0696; J1160; J1650; J1940; J7030; P9046; U0004